=== PATIENT | female | born 1945 | race African-American/Black ===

== ENCOUNTER 2017-01-26 01:03 | Inpatient (IN) | payer OTHER, MEDICARE, BC ==
[2017-01-26] VITALS (17 sets, daily range): BP systolic 105–248; BP diastolic 45–110; PULSE 30–88; RESP 4–18; TEMP 97.7–98.6; O2SAT 95–99
[~2017-01-26] VITALS: Ht 162.6 cm; Wt 82.0 kg
[2017-01-26 01:35] LABS: AUTOMATED NEUTROPHIL # 1.6 TH/MM3 (1.8-7.7); BASOPHIL % 0.6 % (0.0-2.0); EOSINOPHIL # 0.4 TH/MM3 (0-0.4); EOSINOPHIL % 12.2 % (0.0-4.0); HEMATOCRIT 39.2 % (35.0-46.0); HEMO FLAGS DIFF FINAL; LYMPH % 31.5 % (9.0-44.0); LYMPHOCYTE # 1.2 TH/MM3 (1.0-4.8); MEAN CELL VOLUME 96.9 FL (80.0-100.0); MEAN CORPUSCULAR HEMOGLOBIN 32.2 PG (27.0-34.0); MEAN CORPUSCULAR HGB CONC 33.2 % (32.0-36.0); MONO % 11.3 % (0.0-8.0); NEUT % 44.4 % (16.0-70.0); PLATELET COUNT 183 TH/MM3 (150-450); RED BLOOD COUNT 4.04 MIL/MM3 (4.00-5.30); RED CELL DISTRIBUTION WIDTH 15.6 % (11.6-17.2); WHITE BLOOD COUNT 3.7 TH/MM3 (4.0-11.0)
--- NOTE | 2017-01-26 01:39 | RADRPT ---
EXAM DATE/TIME: 01/26/2017 01:27 [facility] COMPARISON: No previous studies available for comparison. INDICATIONS : Altered mental status. RADIATION DOSE: 36.93 CTDIvol (mGy) MEDICAL HISTORY : Non-responsive. SURGICAL HISTORY : Non-responsive. ENCOUNTER: Initial ACUITY: 1 day PAIN SCALE: Non-responsive LOCATION: cranial TECHNIQUE: Multiple contiguous axial images were obtained of the head. Using automated exposure control and adj ustment of the mA and/or kV according to patient size, radiation dose was kept as low as reasonably a chievable to obtain optimal diagnostic quality images. FINDINGS: CEREBRUM: The ventricles are normal for age. Mild periventricular small vessel ischemic demyelination predomin antly in the anterior horn of the left lateral ventricle extending into the external capsule. No evid ence of midline shift, mass lesion, hemorrhage or acute infarction. No extra-axial fluid collections are seen. POSTERIOR FOSSA: The cerebellum and brainstem are intact. The 4th ventricle is midline. The cerebellopontine angle i s unremarkable. EXTRACRANIAL: The visualized portion of the orbits is intact. SKULL: The calvaria is intact. No evidence of skull fracture. CONCLUSION: 1. Mild small vessel disease predominantly in the anterior horn of the left lateral ventricle extendi ng into the external capsule. 2. No acute intracranial process. Dante Cano MD on January 26, 2017 at 1:36 Board Certified Radiologist. This report was verified electronically.
--- NOTE | 2017-01-26 01:40 | RADRPT ---
EXAM DATE/TIME: 01/26/2017 01:36 [facility] COMPARISON: No previous studies available for comparison. INDICATIONS : Weakness. Syncope. MEDICAL HISTORY : None. SURGICAL HISTORY : None. ENCOUNTER: Initial ACUITY: 1 day PAIN SCORE: 5/10 LOCATION: Bilateral chest FINDINGS: A single view of the chest demonstrates hypoinflation with no acute infiltrate. Heart size is promine nt a well compensated. A vascular stent is seen in the right subclavian region. CONCLUSION: 1. Compensated cardiomegaly. 2. No acute infiltrate. Dante Cano MD on January 26, 2017 at 1:38 Board Certified Radiologist. This report was verified electronically.
[2017-01-26 01:42] LABS: APTT (PATIENT) 24.3 SEC (24.3-30.1); PROTHROMBIN TIME - PATIENT 10.7 SEC (9.8-11.6)
[2017-01-26 01:47] LABS: BACTERIA, URINE MOD /hpf; BLOOD, URINE SMALL (NEG); COMMENT (UR) CATH-CULTURE IND; CULTURE IF INDICATED CATH CULTURE IND; GLUCOSE,URINE TRACE mg/dL (NEG); KETONE, URINE NEG (NEG); NITRITE,URINE NEG (NEG); PH, URINE 7.5 (5.0-8.5); SQUAMOUS EPITHELIAL CELL URINE 10 /hpf (0-5); URINE COLOR LIGHT-YELLOW (YELLW/STRAW)
[2017-01-26 01:52] LABS: AMPHETAMINE, URINE NEG (NEG); BARBITURATES, URINE NEG (NEG); COCAINE, URINE NEG (NEG)
[2017-01-26 02:06] LABS: ALKALINE PHOSPHATASE 79 U/L (45-117); TOTAL BILIRUBIN ADULT 0.4 MG/DL (0.2-1.0)
[2017-01-26] MEDS ORDERED: LABETALOL HCL 100 MG/20 ML VIAL IV PUSH ONE (02:15)
[2017-01-26 02:16] LABS: ALT (GPT) 15 U/L (10-53); ANION GAP 17 MEQ/L (5-15); AST (GOT) 20 U/L (15-37); BICARBONATE 20.4 MEQ/L (21.0-32.0); BLOOD UREA NITROGEN 40 MG/DL (7-18); CHLORIDE 99 MEQ/L (98-107); GLOMERULAR FILTRATION RATE 5 ML/MIN (>89); POTASSIUM 5.4 MEQ/L (3.5-5.1); SODIUM (NA) 136 MEQ/L (136-145)
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
[2017-01-26] MEDS ORDERED: PHENYTOIN INJ 250 MG/5 ML VIAL IV ONE (03:30)
[2017-01-26] MEDS ORDERED: SODIUM CHLORIDE 0.9% FLUSH 5 ML FLUSH FLUSH PRN (04:45)
[2017-01-26] MEDS ORDERED: NALOXONE HCL 0.4 MG/ML AMP IV PRN (04:45)
[2017-01-26] MEDS ORDERED: LORazepam 2 MG/ML VIAL IV PUSH PRN (04:45)
[2017-01-26] MEDS ORDERED: HEPARIN SODIUM - SQ 10,000 UNITS/ML VIAL SQ SCH (06:00)
[2017-01-26] MEDS ORDERED: hydrALAZINE HCL 20 MG/ML VIAL IV PRN (07:30)
[2017-01-26] MEDS ORDERED: GLUCAGON 1 MG/ML VIAL OTHER PRN (07:30)
[2017-01-26] MEDS ORDERED: DEXTROSE 50% IN WATER 50 ML VIAL(D50) IV PUSH PRN (07:30)
[2017-01-26] MEDS ORDERED: cloNIDine HCL 0.1 MG TAB PO PRN ×2 (07:30→11:00)
[2017-01-26] MEDS ORDERED: CALCIUM CARBONATE 500 MG CHEWABLE TAB CHEW PRN (07:45)
[2017-01-26] MEDS ORDERED: ACETAMINOPHEN 325 MG TAB PO PRN (07:45)
[2017-01-26] MEDS ORDERED: ONDANSETRON HCL 4 MG/2 ML VIAL IV PRN ×2 (07:45→11:00)
[2017-01-26] MEDS ORDERED: DOCUSATE SODIUM 50 MG/SENNA 8.6 MG TAB PO PRN (07:45)
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
[2017-01-26 08:36] LABS: CKMB 2.8 NG/ML (0.5-3.6)
[2017-01-26] MEDS ORDERED: LOSA100T PO (08:42)
[2017-01-26] MEDS ORDERED: LIDO2GEL11 TOPICAL (08:42)
[2017-01-26] MEDS ORDERED: METF500T PO (08:42)
[2017-01-26] MEDS ORDERED: AMLO10TA2 PO (08:42)
[2017-01-26] MEDS ORDERED: CLOP75TA PO (08:42)
[2017-01-26] MEDS ORDERED: LABE200T2 PO (08:42)
[2017-01-26] MEDS ORDERED: ROSU1TAB10 PO (08:42)
[2017-01-26] MEDS ORDERED: SEVEL800 PO ×2 (08:42)
[2017-01-26] MEDS ORDERED: PHEN100C PO (08:42)
[2017-01-26] MEDS: SODIUM CHLORIDE 0.9% FLUSH 5 ML FLUSH FLUSH SCH ×2 (09:00→21:43)
[2017-01-26] MEDS: LIDOCAINE 2% JELLY 30 ML TUBE TOPICAL SCH (09:00)
[2017-01-26] MEDS ORDERED: CLOPIDOGREL 75 MG TAB PO SCH (09:00)
[2017-01-26] MEDS ORDERED: LABETALOL HCL 200 MG TAB PO SCH (09:00)
[2017-01-26] MEDS ORDERED: SEVELAMER CARBONATE 800 MG TAB PO SCH (09:00)
[2017-01-26] MEDS ORDERED: PHENYTOIN SODIUM 100 MG CAP PO SCH (09:00)
[2017-01-26] MEDS ORDERED: PHENYTOIN SODIUM 100 MG CAP PO ONE (09:15)
[2017-01-26] MEDS ORDERED: ETOMIDATE 20 MG/10 ML VIAL ONE (09:23)
[2017-01-26] MEDS ORDERED: ROCURONIUM INJ 50 MG/5 ML VIAL ONE (09:23)
[2017-01-26] MEDS ORDERED: PHENYTOIN INJ 1,500 MG in SODIUM CHLOR 0.9% 250 ML INJ 250 ML IV ONE (09:30)
[2017-01-26] MEDS ORDERED: PROPOFOL 1000 MG/100 ML INJ 100 ML ONE (09:33)
--- NOTE | 2017-01-26 09:43 | PD ---
Physical Exam Date Seen by Provider: Jan 26, 2017 Time Seen by Provider: 09:38 Narrative I was called in the room by the nurse because the patient was unresponsive, Brynn normal respirations, hypoxia and bradycardic. She had just had a generalized tonic-clonic seizure while she was getting her EEG done. The traffic technician witnessed the seizure and said it lasted for less than 2 minutes. By the time the nurse arrived patient had almost completed with the seizure but started with the abnormal vital signs. When I arrived patient continued to be a goal of respiration and heart rate in the 30s. As the nurse was preparing to put the oxygen mask on her patient stopped breathing. I started giving her assisted ventilation by BVM. After about a minute of assisted ventilation patient started having spontaneous respirations but agonal. She continued to be unresponsive. I decided to intubate her. Respiratory was called. Her heart rate started to oyster picker at this point and went to the 80s. Oxygen saturation prior to intubation was 100% with assisted ventilations. Once the intubation was done and chest x-ray was ordered to confirm the tube placement. The admitting physician was called and currently he is here and planning to transfer the patient to the ICU. Currently she is hemodynamically stable. She is hooked up to the ventilator. Data Data Last Documented VS Vital Signs Date Time Temp Pulse Resp B/P Pulse Ox O2 Delivery O2 Flow Rate FiO2 01/26/17 03:00 62 14 164/75 98 Room Air 01/26/17 01:03 98.5 Orders Electrocardiogram (01/26/17 01:08) Ammonia (01/26/17 01:08) Complete Blood Count With Diff (01/26/17:08) Comprehensive Metabolic Panel (01/26/17:08) Prothrombin Time / Inr (Pt) (01/26/17:08) Act Partial Throm Time (Ptt) (01/26/17:08) Troponin I (01/26/17:08) Thyroid Stimulating Hormone (01/26/17:08) Urinalysis - C+S If Indicated (01/26/17 01:08) Blood Culture (01/26/17 01:08) Chest, Single Ap (01/26/17 01:08) Ct Brain W/O Iv Contrast(Rout) (01/26/17:08) Blood Glucose (01/26/17 01:08) Ecg Monitoring (01/26/17 01:08) Iv Access Insert/Monitor (01/26/17 01:08) Cath For Specimen (01/26/17 01:08) Oximetry (01/26/17 01:08) Drug Screen, Random Urine (01/26/17 01:08) Alcohol (Ethanol) (01/26/17 01:08) Urine Culture (01/26/17 01:10) Labetalol Inj (Trandate Inj) (01/26/17 02:15) Phenytoin (Dilantin) (01/26/17 02:35) Admit Order (Ed Use Only) (01/26/17 03:27) Phenytoin Inj (Dilantin Inj) (01/26/17 03:30) Labs Laboratory Tests Test 01/26/17 01/26/17 01/26/17 01:10 01:15 02:35 Urine Color LIGHT-YELLOW Urine Turbidity HAZY Urine pH 7.5 Urine Specific [place] 1.006 Urine Protein 100 mg/dL Urine Glucose (UA) TRACE mg/dL Urine Ketones NEG mg/dL Urine Occult Blood SMALL Urine Nitrite NEG Urine Bilirubin NEG Urine Urobilinogen LESS THAN 2.0 MG/DL Urine Leukocyte Esterase NEG Urine RBC 2 /hpf Urine WBC 1 /hpf Urine Squamous Epithelial 10 /hpf Cells Urine Bacteria MOD /hpf Urine Yeast (Budding) RARE Microscopic Urinalysis Comment CATH-CULTURE IND Urine Opiates Screen NEG Urine Barbiturates Screen NEG Urine Amphetamines Screen NEG Urine Benzodiazepines Screen NEG Urine Cocaine Screen NEG Urine Cannabinoids Screen NEG White Blood Count 3.7 TH/MM3 Red Blood Count 4.04 MIL/MM3 Hemoglobin 13.0 GM/DL Hematocrit 39.2 % Mean Corpuscular Volume 96.9 FL Mean Corpuscular Hemoglobin 32.2 PG Mean Corpuscular Hemoglobin 33.2 % Concent Red Cell Distribution Width 15.6 % Platelet Count 183 TH/MM3 Mean Platelet Volume 8.1 FL Neutrophils (%) (Auto) 44.4 % Lymphocytes (%) (Auto) 31.5 % Monocytes (%) (Auto) 11.3 % Eosinophils (%) (Auto) 12.2 % Basophils (%) (Auto) 0.6 % Neutrophils # (Auto) 1.6 TH/MM3 Lymphocytes # (Auto) 1.2 TH/MM3 Monocytes # (Auto) 0.4 TH/MM3 Eosinophils # (Auto) 0.4 TH/MM3 Basophils # (Auto) 0.0 TH/MM3 CBC Comment DIFF FINAL Differential Comment Prothrombin Time 10.7 SEC Prothromb Time International 1.0 RATIO Ratio Activated Partial 24.3 SEC Thromboplast Time Sodium Level 136 MEQ/L Potassium Level 5.4 MEQ/L Chloride Level 99 MEQ/L Carbon Dioxide Level 20.4 MEQ/L Anion Gap 17 MEQ/L Blood Urea Nitrogen 40 MG/DL Creatinine 8.75 MG/DL Estimat Glomerular Filtration 5 ML/MIN Rate Random Glucose 114 MG/DL Calcium Level 8.6 MG/DL Total Bilirubin 0.4 MG/DL Aspartate Amino Transf 20 U/L (AST/SGOT) Alanine Aminotransferase 15 U/L (ALT/SGPT) Alkaline Phosphatase 79 U/L Ammonia 20 MCMOL/L Total Creatine Kinase 239 U/L Creatine Kinase MB 2.8 NG/ML Creatine Kinase MB % % Troponin I LESS THAN 0.02 NG/ML Total Protein 8.1 GM/DL Albumin 4.0 GM/DL Thyroid Stimulating Hormone 1.610 uIU/ML 3rd Gen Ethyl Alcohol Level LESS THAN 3 MG/DL Phenytoin (Dilantin) Level 3.9 MCG/ML MDM Supervised Visit with VICKIE: No Critical Care Narrative Aggregate critical care time was 30 minutes. Time to perform other separately billable procedures was not included in the critical care time. My time did not include minutes spent treating any other patients simultaneously or on activities that did not directly contribute to the patient's treatment. The services I provided to this patient were to treat and/or prevent clinically significant deterioration that could result in: Respiratory failure, near code blue I provided critical care services requiring my management, as noted below: Chart data review, documentation time, medication orders and management, vital sign assessments/reviewing monitor data, ordering and reviewing lab tests, ordering and interpreting/reviewing x-rays and diagnostic studies, care of the patient and discussion of the patient with the admitting physicians. Procedures Procedure Narrative After the risks and benefits were discussed the following procedure was performed: INTUBATION: The patient was put in optimal position for the procedure. Rapid sequence intubation was initiated by me using 20 milligrams of etomidate IV and 100 milligrams of rocuronium IV. The patient was intubated with a 7.5 cuffed endotracheal tube. Tube placement was confirmed by visualization of the tube and balloon passing through the cords, capnometry and subsequent chest x-ray. Breath sounds were equal and well aerated bilaterally postintubation. No breath sounds over stomach. Patient tolerated procedure well. Diagnosis Primary Impression: ALTERED MENTAL STATUS, UNSPECIFIED Maria G Weiss MD Jan 26, 2017 09:42
[2017-01-26] MEDS ORDERED: CHLORHEXIDINE GLUCONATE 2 % 1 PACK (2 CLOTHS) TOP PRN (09:45)
[2017-01-26] MEDS ORDERED: NITROGLYCERIN 0.4 MG SL 25 TABS/BTL SL PRN ×2 (09:45→11:00)
[2017-01-26] MEDS ORDERED: DOCUSATE SODIUM 50 MG/SENNA 8.6 MG TAB NG PRN (09:45)
[2017-01-26] MEDS ORDERED: MISCELLANEOUS NURSING INFORMATION XX SCH (09:45)
[2017-01-26] MEDS ORDERED: ROCURONIUM INJ 100 MG/10 ML VIAL IV ONE (10:00)
[2017-01-26] MEDS ORDERED: ETOMIDATE 20 MG/10 ML VIAL IV PUSH ONE (10:00)
[2017-01-26] MEDS ORDERED: PROPOFOL 1000 MG/100 ML INJ 100 ML IV SCH (10:00)
[2017-01-26] MEDS ORDERED: SODIUM CHLORIDE 0.9% IV ONE (10:00)
[2017-01-26] MEDS ORDERED: PHENYTOIN IV ONE (10:00)
[2017-01-26 10:29] LABS: BLOOD GAS BASE EXCESS -9.3 mmol/L (-2-2); BLOOD GAS CARBOXYHEMOGLOBIN 1.4 % (0-4); BLOOD GAS HCO3 16 mmol/L (22-26); BLOOD GAS METHEMOGLOBIN 0.9 % (0-2); BLOOD GAS O2 HGB SATURATION 96 % (90-100); BLOOD GAS OXYGEN CONTENT 16.2 Vol % (12.0-20.0); BLOOD GAS PCO2 31 mmHg (38-42); BLOOD GAS PO2 141 mmHg (61-120); BLOOD GAS TOTAL HGB 11.8 G/DL (12.0-16.0); TEMP CORR TO 98.6
[2017-01-26 10:30] LABS: CRITICAL VALUE YES; DRAW SITE LT RADIAL; FIO2 35 %; NUMBER OF ARTERIAL PUNCTURES 1; OXYGEN DEVICE AC/VT500/R15/PEEP5; STAT NO; ULNAR PULSE Y
[2017-01-26] MEDS ORDERED: SODIUM CHLOR 0.9% 1000 ML INJ 1,000 ML IV PRN ×3 (10:47)
[2017-01-26 10:58] LABS: CKMB 3.4 NG/ML (0.5-3.6)
[2017-01-26] MEDS ORDERED: GENTAMICIN SULFATE (DIALYSIS USE ONLY) 20 MG/2 ML VIAL IV PRN (11:00)
[2017-01-26] MEDS ORDERED: diphenhydrAMINE HCL 25 MG CAP PO PRN (11:00)
[2017-01-26] MEDS ORDERED: HEPARIN SODIUM - IV 10,000 UNITS/10 ML VIAL PRN (11:00)
[2017-01-26] MEDS ORDERED: ALBUMIN HUMAN 25% 25 GM/100 ML BAGP IV PRN (11:00)
[2017-01-26] MEDS ORDERED: HEPARIN SODIUM - IV 10,000 UNITS/10 ML VIAL IVF PRN (11:00)
[2017-01-26] MEDS ORDERED: SODIUM CHLORIDE 0.9% FLUSH 5 ML FLUSH IVF PRN (11:00)
[2017-01-26] MEDS ORDERED: INSULIN ASPART SUPPLEMENTAL SCALE SQ SCH (11:00)
[2017-01-26] MEDS ORDERED: MANNITOL 12.5 GM/50 ML VIAL IV PRN (11:00)
--- NOTE | 2017-01-26 11:13 | RADRPT ---
EXAM DATE/TIME: 01/26/2017 09:49 [place] COMPARISON: CHEST SINGLE AP, January 26, 2017, 1:36. INDICATIONS : Post intubation et tube. MEDICAL HISTORY : None. SURGICAL HISTORY : None. ENCOUNTER: Initial ACUITY: 1 day PAIN SCORE: Non-responsive. LOCATION: chest FINDINGS: Portable AP view of the chest demonstrates a normal-sized cardiac silhouette. No effusion, consolidat ion, or pneumothorax is visualized. The bones and soft tissues demonstrate no acute abnormality. Endo tracheal tube tip measures 4.5 cm from the senait and NG tube courses beyond the GE junction. Vascula r stent overlies the right axilla. CONCLUSION: No acute cardiopulmonary abnormality is identified. ETT in appropriate position. Elver Cheung MD on January 26, 2017 at 11:08 Board Certified Radiologist. This report was verified electronically.
[2017-01-26] MEDS ORDERED: ACETAMINOPHEN 325 MG TAB NG PRN (11:45)
--- NOTE | 2017-01-26 12:37 | PD.CONS ---
[facility] Service Critical Care Medicine Consult Requested By Dr Corcoran Reason for Consult Acute respiratory failure Status epilepticus Acute encephalopathy Primary Care Physician Unknown History of Present Illness Patient is a 71-year-old female with history of ESRD awaiting transplant, seizure disorder, type 2 diabetes, hypertension, CAD with history o PR and stent , pulmonary hypertension, secondary hyperparathyroidism presents with AMS after being found in her car in a ditch. She was disoriented but awake. In the ER she was unable to recall any of the events. She takes Dilantin for her seizures , reports compliance with her medications. Apparently last seizure was over 25years ago. CT of the head was negative and patient was admitted to hospitalist service. As part of workup she had EEG today which showed subclinical seizures, and patient received additional loading dose of Cerebyx ( received loading dose in ER initially for subtherapeutic Dilantin level 3.9). While the spa technician was completing the study patient developed tonic-clonic seizures. Patient also became bradycardic into low 30s. She received Ativan, started having agonal breathing, later became apneic. The patient was intubated by ER physician. Critical care medicine was consulted to assume care I evaluated the patient ED. She remains intubated sedated. No active seizure noted. 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 Cardiac catheterization with stent Right upper extremity AV fistula Colonoscopy Reported Medications Losartan 100 mg daily Labetalol 200 mg twice a day Metformin 500 mg daily Amlodipine 10 mg twice a day Rosuvastatin 40 mg daily Phenytoin 100 mg 3 times a day Renvela 4000 mg by mouth 3 times a day before meals Plavix 75 mg daily Active Ordered Medications Reviewed medication Family History Reviewed Social History No alcohol or tobacco use Physical Exam Vital Signs Vital Signs Date Time Temp Pulse Resp B/P Pulse Ox O2 Delivery O2 Flow Rate FiO2 01/26/17 12:26 60 01/26/17 12:26 97.7 60 15 105/45 98 01/26/17 10:56 75 15 118/56 01/26/17 09:50 70 15 165/67 01/26/17 09:30 99 35 01/26/17 09:30 74 15 194/86 01/26/17 09:27 35 01/26/17 09:15 30 4 01/26/17 05:00 56 14 155/67 97 Room Air 01/26/17 03:00 62 14 164/75 98 Room Air 01/26/17 01:03 98.5 81 14 248/110 95 01/26/17 01:03 14 95 Room Air Physical Exam GENERAL: Well-nourished, well-developed female who is intubated sedated SKIN: Warm and dry. No rash. HEAD: Normocephalic. Atraumatic. EYES: Pupils equal and round. No scleral icterus. No injection or drainage. ENT: No nasal bleeding or discharge, orotracheally intubated NECK: Supple. Trachea midline. CARDIOVASCULAR: Regular rate and rhythm. S1, S2 noted. No murmur appreciated. RESPIRATORY: Clear to auscultation. Breath sounds equal bilaterally. GASTROINTESTINAL: Abdomen soft, non-tender, nondistended. Normoactive bowel sounds x4. 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 Extremities without clubbing, cyanosis, or edema. NEUROLOGICAL: Intubated heavily sedated. Appears to be moving extremities. No sedation hold due to status epilepticus Laboratory Laboratory Tests Test 01/26/17 01/26/17 01/26/17 01/26/17 01:10 01:15 02:35 09:55 Urine Color LIGHT-YELLOW Urine Turbidity HAZY Urine pH 7.5 Urine Specific [place] 1.006 Urine Protein 100 Urine Glucose (UA) TRACE Urine Ketones NEG Urine Occult Blood SMALL Urine Nitrite NEG Urine Bilirubin NEG Urine Urobilinogen LESS THAN 2.0 Urine Leukocyte Esterase NEG Urine RBC 2 Urine WBC 1 Urine Squamous Epithelial 10 Cells Urine Bacteria MOD Urine Yeast (Budding) RARE Microscopic Urinalysis Comment CATH-CULTURE IND Urine Opiates Screen NEG Urine Barbiturates Screen NEG Urine Amphetamines Screen NEG Urine Benzodiazepines Screen NEG Urine Cocaine Screen NEG Urine Cannabinoids Screen NEG White Blood Count 3.7 Red Blood Count 4.04 Hemoglobin 13.0 Hematocrit 39.2 Mean Corpuscular Volume 96.9 Mean Corpuscular Hemoglobin 32.2 Mean Corpuscular Hemoglobin 33.2 Concent Red Cell Distribution Width 15.6 Platelet Count 183 Mean Platelet Volume 8.1 Neutrophils (%) (Auto) 44.4 Lymphocytes (%) (Auto) 31.5 Monocytes (%) (Auto) 11.3 Eosinophils (%) (Auto) 12.2 Basophils (%) (Auto) 0.6 Neutrophils # (Auto) 1.6 Lymphocytes # (Auto) 1.2 Monocytes # (Auto) 0.4 Eosinophils # (Auto) 0.4 Basophils # (Auto) 0.0 CBC Comment DIFF FINAL Differential Comment Prothrombin Time 10.7 Prothromb Time International 1.0 Ratio Activated Partial 24.3 Thromboplast Time Sodium Level 136 Potassium Level 5.4 Chloride Level 99 Carbon Dioxide Level 20.4 Anion Gap 17 Blood Urea Nitrogen 40 Creatinine 8.75 Estimat Glomerular Filtration 5 Rate Random Glucose 114 Calcium Level 8.6 Total Bilirubin 0.4 Aspartate Amino Transf 20 (AST/SGOT) Alanine Aminotransferase 15 (ALT/SGPT) Alkaline Phosphatase 79 Ammonia 20 Total Creatine Kinase 239 256 Creatine Kinase MB 2.8 3.4 Creatine Kinase MB % 1.3 Troponin I LESS THAN 0.02 0.05 Total Protein 8.1 Albumin 4.0 Thyroid Stimulating Hormone 1.610 3rd Gen Ethyl Alcohol Level LESS THAN 3 Phenytoin (Dilantin) Level 3.9 Bedside Creatinine 9.2 Test 01/26/17 10:15 Blood Gas Puncture Site LT RADIAL Blood Gas Patient Temperature 98.6 Blood Gas HCO3 16 Blood Gas Base Excess -9.3 Blood Gas Oxygen Saturation 96 Arterial Blood pH 7.33 Arterial Blood Partial 31 Pressure CO2 Arterial Blood Partial 141 Pressure O2 Arterial Blood Oxygen Content 16.2 Arterial Blood 1.4 Carboxyhemoglobin Arterial Blood Methemoglobin 0.9 Blood Gas Hemoglobin 11.8 Oxygen Delivery Device [id number]/VT500/R15/[id number] Blood Gas Inspired Oxygen 35 Date/Time Procedure Status Source Growth 01/26/17 01:15 Aerobic Blood Culture Received Blood Peripheral Pending 01/26/17 01:15 Anaerobic Blood Culture Received Blood Peripheral Pending 01/26/17 01:10 Urine Culture Received Urine Catheterized Urine Pending Result Diagram: 01/26/1711401/26/17114 Imaging C head- No acute findings Assessment and Plan Assessment and Plan PLAN by system: NEURO: Status epilepticus Seizure disorder Acute encephalopathy -Reloaded with Dilantin. Continue Dilantin 100 mg IV every 8 hours. Repeat level in a.m. -Repeat EEG in a.m. Neurology consulted Dr. Dennis -CT head no acute findings -Propofol for sedation vent synchrony and seizure control RESP: Acute respiratory failure History of pulmonary hypertension -Intubated for airway protection, continue ACV -Start spontaneous breathing trials in 24 hours -DuoNeb q6hr PRN -Vent bundle CV: Hypertension CAD with PR and stents -Monitor HR and blood pressure -Hydralazine when necessary for SBP >160 GI: -Nothing by mouth except meds, IV Protonix : ESRD on HD -Nephrology consulted. HD today ID: -Monitor for infection. No indication for antibiotics at this time HEME: -Monitor CBC, CMP, coags ENDO: History of secondary hyperparathyroidism -Electrolyte replacement as needed -Sliding-scale insulin PROPH: -Bilateral lower extremity SCDs. Heparin 5000 U sq q12. Protonix for GI prophylaxis LINES: -Utilize peripheral IVs, central line if needed CC time 45 min Code Status Full Code Discussed Condition With Samantha Enriquez MD Jan 26, 2017 12:37 Discussed Condition With Samantha Enriquez MD Jan 26, 2017 12:37 Full Code Discussed Condition With Samantha Enriquez MD Jan 26, 2017 12:37
[2017-01-26] MEDS ORDERED: SEVELAMER CARBONATE 800 MG TAB SCH (13:00)
[2017-01-26] MEDS ORDERED: PHENYTOIN SUSP 100 MG/4 ML CUP NG SCH (13:00)
[2017-01-26] MEDS ORDERED: cloNIDine HCL 0.1 MG TAB NG PRN (13:30)
[2017-01-26 15:16] LABS: POTASSIUM 4.3 MEQ/L (3.5-5.1)
[2017-01-26] MEDS: FOSPHENYTOIN SODIUM 100 MG PE/2 ML VIAL IV SCH ×2 (15:41→21:48)
[2017-01-26] MEDS: INSULIN ASPART SUPPLEMENTAL SCALE SQ SCH ×2 (16:00→20:00)
--- NOTE | 2017-01-26 16:17 | MB ---
cc: TESHA ODELL M.D. DATE OF CONSULTATION: 01/26/2017 REASON FOR CONSULTATION: Seizure. HISTORY OF PRESENT ILLNESS: The patient is a 71-year-old woman, intubated on propofol. The history is taken from the chart with a known history of end-stage renal disease, awaiting transplant, history of epilepsy, type 2 diabetes, hypertension, heart disease with OH and stent, pulmonary hypertension, secondary to hyperparathyroidism, comes in with confusion, found in her car in a ditch, disoriented, looks like post ictal. Apparently the last seizure was over [address] was done on admission that did not show any acute findings. Apparently after her EEG, the patient developed a tonic clonic seizure, may have had subclinical seizures during the EEG, was bradycardiac in the 30s, received Ativan, had agonal breathing, intubated by the ER physician. PAST MEDICAL HISTORY: As stated. SOCIAL HISTORY No alcohol. No tobacco. HOME MEDICATIONS: Please refer to the chart. Apparently her Dilantin she takes 100 milligrams 3x a day. PHYSICAL EXAMINATION: VITAL SIGNS: Temperature is 98.3, pulse 88, respiratory rate 15, 146/72 blood pressure, sating at 97%, FIO2 35%. She is intubated, sedated. HEENT: Pupils are pinpoint, no gaze deviation. Does not withdraw or grimace to any painful stimuli, receiving dialysis, basically has a sedated exam. LABORATORY DATA: White count 3.7, guaiac panel unremarkable. Chemistry: GFR is 5, creatinine 8.75, BUN 40, ammonia level is 20, TSH 1.6, potassium 5.4. CK 239, 256 respectively. Cardiac enzymes negative so far. Toxicology: Dilantin level on admission was low at 3.9. UDS otherwise unremarkable. Urine cultures pending. Microbiology so far is not showing anything that is growing. CT head performed, just mild small vessel disease. No acute process. IMPRESSION/PLAN: The patient is a 71 year-old woman with a history of epilepsy, subtherapeutic Dilantin level. Certainly may have provoked her having a seizure. She was loaded with what appears to be Dilantin 1250 milligrams one time dose. I would continue her Dilantin at least 100 milligrams every 8 hours, Cerebyx has been initiated. Check a level, keep level closer to 15 if possible. Antiseizure precautions. Hopefully she will be stable enough to be extubated that meets criteria tomorrow. EEG was done, will get the report of that, and continue current care as outlined. MD BRITANY Ventura/ZAHIRA /3:08 PM /4:07 PM
--- NOTE | 2017-01-26 16:26 | EC ---
Study Study Date:01/26/2017 STUDY CONCLUSIONS SUMMARY - Left ventricle: The cavity size was normal. Wall thickness was increased in a pattern of mild LVH. There was concentric hypertrophy. Systolic function was mildly to moderately reduced. The estimated ejection fraction was in the range of 45% to 50%. Diffuse hypokinesis. Doppler parameters are consistent with abnormal left ventricular relaxation (grade 1 diastolic dysfunction). - Mitral valve: Mild regurgitation. - Tricuspid valve: Mild regurgitation. - Pulmonary arteries: PA peak pressure: 41mm Hg (S). If LV function is below 40, please consider prescribing an ACEI or ARB or document rationale for non-use. PROCEDURE DATA STUDY STATUS: Elective. Procedure: Transthoracic echocardiography. Image quality was good. Scanning was performed from the parasternal, apical, and subcostal acoustic windows. Study completion: The patient tolerated the procedure well. Transthoracic echocardiography. M-mode, complete 2D, complete spectral Doppler, and color Doppler. Patient status: Inpatient. CARDIAC ANATOMY LEFT VENTRICLE: The cavity size was normal. Wall thickness was increased in a pattern of mild LVH. There was concentric hypertrophy. Systolic function was mildly to moderately reduced. The estimated ejection fraction was in the range of 45% to 50%. Diffuse hypokinesis. Doppler parameters are consistent with abnormal left ventricular relaxation (grade 1 diastolic dysfunction). AORTIC VALVE: The valve appears to be grossly normal. Doppler: There was no stenosis. No significant regurgitation. Peak gradient: 12mm Hg (S). MITRAL VALVE: The valve appears to be grossly normal. Doppler: There was no evidence for stenosis. Mild regurgitation. Mean gradient: 2mm Hg (D). Peak gradient: 5mm Hg (D). LEFT ATRIUM: The atrium was mildly dilated. RIGHT VENTRICLE: The cavity size was normal. PULMONIC VALVE: Not well visualized. Doppler: There was no evidence for stenosis. No significant regurgitation. TRICUSPID VALVE: The valve appears to be grossly normal. Doppler: There was no evidence for stenosis. Mild regurgitation. PERICARDIUM: There was no pericardial effusion. BASIC MEASUREMENTS ADULT Normal Left ventricle LV internal dimension, ED, chordal level, *42.6 mm 43-52 PLAX LV internal dimension, ES, chordal level, 35.5 mm 23-38 PLAX Fractional shortening, chordal level, PLAX *17 % >29 LV posterior wall thickness, ED 11.5 mm IVS/LVPW ratio, ED 1.06 <1.3 Ventricular septum Septal thickness, ED 12.2 mm Aortic valve Leaflet separation 20 mm 15-26 Left atrium Anterior-posterior dimension 44 mm Right ventricle RV internal dimension, ED, PLAX 21.9 mm 19-38 BASIC MEASUREMENTS ADULT Normal Aortic valve Leaflet separation 20 mm 15-26 Aorta Root diameter, ED 36 mm 20-37 DOPPLER MEASUREMENTS ADULT Normal Main pulmonary artery Pressure, S *41 mm Hg =30 Aortic valve Peak velocity, S 171 cm/s VTI, S 40.6 cm Peak gradient, S 12 mm Hg Mitral valve Peak E-wave velocity 71.6 cm/s Peak A-wave velocity 98.2 cm/s Mean velocity, D 58.3 cm/s Mean gradient, D 2 mm Hg Peak gradient, D 5 mm Hg Peak E/A ratio 0.7 Tricuspid valve Regurgitant peak velocity 195 cm/s Peak RV-RA gradient, S 15 mm Hg Maximal regurgitant velocity 195 cm/s Systemic veins Estimated CVP 20 mm Hg Right ventricle RV pressure, S *41 mm Hg <30 LEGEND: Mean values are shown as u=mean value. Asterisk (*) delgado values outside specified normal range. Prepared and signed by Juanpablo Oliver [id number]
[2017-01-26] MEDS ORDERED: MORPHINE SULFATE 4 MG/ML INJ ONE (16:33)
[2017-01-26] MEDS: PROPOFOL 1000 MG/100 ML INJ 100 ML IV SCH ×2 (16:37→21:43)
[2017-01-26 17:01] LABS: CKMB 3.1 NG/ML (0.5-3.6)
[2017-01-26] MEDS: HEPARIN SODIUM - SQ 10,000 UNITS/ML VIAL SQ SCH (18:15)
[2017-01-26] MEDS: DEXT 5%-NACL 0.9% 1000 ML INJ 1,000 ML IV SCH (18:30)
--- NOTE | 2017-01-26 18:33 | EKG ---
Date Performed: 01/26/2017 Time Performed: 01:12:31 PTAGE: 71 years EKG: Sinus rhythm POSSIBLE LEFT ATRIAL ENLARGEMENT BORDERLINE ECG NO PREVIOUS TRACING DOCTOR: Carlos Michaels Interpretating Date/Time 01/26/2017 18:32:10
--- NOTE | 2017-01-26 19:25 | MG ---
cc: OLIVA COOK M.D. Sex: F Date: 01/26/2017 An EEG was obtained on this 71-year-old patient with history of seizures, on dialysis. MEDICATIONS Phenytoin. DESCRIPTION: The patient had a seizure while the EEG is being recorded. The EEG initially shows prominent polyspike and slow wave activity in a diffuse manner repeating every second or so. There is some attenuation in between this pattern and then after 5 minutes or so of recording, the patient entered in a clinical as well as electrical seizure activity that seems to have started in a generalized manner, that lasted a minute or so and was followed by severe generalized attenuation. At this point the patient apparently was in some respiratory failure and was intubated. Evidently the EEG was discontinued. INTERPRETATION Abnormal EEG because of a polyspike pattern diffusely repeating every second or so and subsequent ictal event that was characterized by a generalized ictal activity and the patient also demonstrated clinical seizure followed by severe attenuation / suppression in a generalized manner and the patient was subsequently intubated. Oliva Cook MD [facility]/[place]IR[place] /6:45 PM /7:22 PM
[2017-01-26] MEDS ORDERED: ATORVASTATIN 80 MG TAB PO SCH (21:00)
[2017-01-26] MEDS: CHLORHEXIDINE 0.12% (ORAL KIT) 15 ML CUP MT SCH (21:42)
[2017-01-26] MEDS: ATORVASTATIN 80 MG TAB NG SCH (21:47)
[2017-01-26] MEDS: LABETALOL HCL 200 MG TAB NG SCH (21:47)
--- NOTE | 2017-01-26 22:11 | MB ---
cc: CHRISTI STEELE MD DATE OF CONSULTATION 01/26/2017 REASON FOR CONSULTATION End-stage renal disease on hemodialysis for management. HISTORY OF PRESENT ILLNESS This is 71-year-old female with past medical history of diabetes mellitus, hypertension, ischemic heart disease, history of seizure, pulmonary hypertension, hyperparathyroidism, end-stage renal disease on hemodialysis three times per week was brought to the hospital with altered mental status. I was called to see the patient for management of dialysis. The patient has been on hemodialysis Tuesday, Tuesday and Tuesday. She has been following with Dr. Nichole. She is not able to give any history. Most of the history was taken from the patient's chart, according to which she was found in a ditch with confusion and disorientation. The patient was awake when she came to the hospital but she was confused, answering questions appropriately. When I saw her she was already intubated and according to the chart the boyfriend was there in the ER when the patient came. 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 And when she left the house she was acting normally. She has a history of seizures but there is no known seizure for almost 25 years. PAST MEDICAL HISTORY 1. Diabetes mellitus. 2. Hypertension. 3. Ischemic heart disease. 4. Pulmonary hypertension. 5. Secondary hyperparathyroidism. 6. End-stage renal disease on hemodialysis. PAST SURGICAL HISTORY 1. Right arm AV fistula surgery. 2. Hysterectomy. 3. Left shoulder surgery. 4. Cardiac catheterization with angioplasty. 5. Colonoscopy. REVIEW OF SYSTEMS Cannot be taken since the patient is intubated. SOCIAL HISTORY The patient lives with her boyfriend. There is no history of smoking or alcoholism. FAMILY HISTORY Noncontributory. ALLERGIES She has no known drug allergies. MEDICATIONS Currently she is on following medications: 1. Amlodipine 10 mg b.i.d. 2. Albuterol 200 mg b.i.d. 3. Plavix 75 mg once a day. 4. Lipitor 80 mg q.h.s. 5. Heparin 5000 subcu q.12-hour. 6. Insulin aspart sliding scale. 7. Cerebyx injection 10 mg IV q.8 hours. 8. Renvela 2.4 grams t.i.d. 9. Propofol. 10. Narcan as needed. 11. Lorazepam as needed. 12. Zofran as needed. PHYSICAL EXAMINATION VITAL SIGNS: The patient is intubated and sedated. Last blood pressure reported was 125/75, temperature 98.2, oxygen saturation is 96% on 35% FIO2. HEENT: Pupils are mid constricted. Nonicteric sclera, conjunctiva normal. NECK: Supple. JVD is not elevated. LUNGS: The patient has bilateral decreased air entry with scattered wheezing. HEART: S1-S2, regular rhythm. ABDOMEN: Distended, soft, lax. There is no tenderness. Bowel sounds positive. EXTREMITIES: There is no pedal edema. The right arm has an AV fistula. LABORATORY DATA Investigations, WBC count is 3.7, hemoglobin 13.0, platelet count of 183, neutrophils 44.4%. Sodium 136, potassium 5.4, chloride 99, bicarb 20.4, BUN 40, creatinine 8.75, glucose 114, calcium 8.6, AST is 20, ALT is 15. Troponin I is less than 0.02. Albumin 4.0, total protein of 8.1. TSH is 1.6. Potassium is 4.3. Creatinine kinase 248. The repeat troponin I is 0.07. INR is 1.0. Urinalysis showing protein of 100. Toxicology screen showing phenytoin level was 3.9. Other toxicology was negative including ethyl alcohol level was less than 3. Blood culture and urine culture pending. IMAGING STUDIES The patient had chest x-ray done on admission which shows lung palomares clear. ET tube in good position. CT scan of the brain was done which shows small vessel disease. No acute intracranial process. Echocardiogram was done which shows that the ejection fraction is around 45-50% with diffuse hypokinesia. ASSESSMENT/PLAN 1. Altered mental status possibly seizure. 2. Respiratory failure. 3. End-stage renal disease on hemodialysis. 4. Hyperkalemia. 5. History of ischemic heart disease. 6. Encephalopathy. 7. Hypertension. The patient had hemodialysis done and 3 liters of fluid was removed. She tolerated it well. The blood pressure is stable. The patient is n.p.o. I will put her on gentle hydration. an hour. The patient was seen by neurologist and the EEG was done. Also the patient was seen by the supervisor motor vehicle assembly. We will wait for the weaning. The Dilantin level was low and the patient was loaded with Dilantin. We will continue the dialysis Tuesday, Tuesday and Tuesday. Thank you for the consultation and I will follow the patient while she is in the hospital. Christi Steele MD AQJ/KK /9:23 PM /9:38 PM
[2017-01-26 22:31] LABS: CKMB 1.7 NG/ML (0.5-3.6)
[2017-01-27] VITALS (19 sets, daily range): BP systolic 96–141; BP diastolic 43–71; PULSE 64–72; RESP 16–20; TEMP 97.9–98.6; O2SAT 96–99
[2017-01-27] MEDS: PROPOFOL 1000 MG/100 ML INJ 100 ML IV SCH ×2 (01:50→06:02)
[2017-01-27] MEDS: CHLORHEXIDINE GLUCONATE 2 % 1 PACK (2 CLOTHS) TOP SCH (04:00)
[2017-01-27 05:30] LABS: BICARBONATE 22.7 MEQ/L (21.0-32.0); POTASSIUM 4.6 MEQ/L (3.5-5.1)
[2017-01-27 05:35] LABS: HEMATOCRIT 37.9 % (35.0-46.0); MEAN CELL VOLUME 99.2 FL (80.0-100.0); MEAN CORPUSCULAR HEMOGLOBIN 32.5 PG (27.0-34.0); MEAN CORPUSCULAR HGB CONC 32.7 % (32.0-36.0); PLATELET COUNT 132 TH/MM3 (150-450); RED BLOOD COUNT 3.82 MIL/MM3 (4.00-5.30); RED CELL DISTRIBUTION WIDTH 16.4 % (11.6-17.2)
[2017-01-27 05:37] LABS: HEMO FLAGS AUTO DIFF
[2017-01-27 05:51] LABS: CALCIUM-PROTEIN CORRECTED 7.8 MG/DL (8.5-10.1)
[2017-01-27] MEDS: INSULIN ASPART SUPPLEMENTAL SCALE SQ SCH ×6 (06:13→20:00)
[2017-01-27] MEDS: FOSPHENYTOIN SODIUM 100 MG PE/2 ML VIAL IV SCH ×3 (06:14→21:34)
[2017-01-27] MEDS: HEPARIN SODIUM - SQ 10,000 UNITS/ML VIAL SQ SCH ×2 (06:14→18:25)
--- NOTE | 2017-01-27 07:30 | HHI.CCPN ---
Subjective Remarks/Hospital Course Patient is a 71-year-old female with history of ESRD awaiting transplant, seizure disorder, type 2 diabetes, hypertension, CAD with history o SD and stent , pulmonary hypertension, secondary hyperparathyroidism presents with AMS after being found in her car in a ditch. She was disoriented but awake. In the ER she was unable to recall any of the events. She takes Dilantin for her seizures , reports compliance with her medications. Apparently last seizure was over 25years ago. CT of the head was negative and patient was admitted to hospitalist service. As part of workup she had EEG today which showed subclinical seizures, and patient received additional loading dose of Cerebyx ( received loading dose in ER initially for subtherapeutic Dilantin level 3.9). While the instrument/control technician was completing the study patient developed tonic-clonic seizures. Patient also became bradycardic into low 30s. She received Ativan, started having agonal breathing, later became apneic. The patient was intubated by ER physician. Critical care medicine was consulted to assume care. I evaluated the patient ED. She remains intubated sedated. No active seizure noted. Neurology consulted SUBJ 01/27/17: Patient remains intubated heavily sedated. No clinical seizures noted. EEG yesterday showed seizure activity. Dilantin level therapeutic. 2 episodes of bradycardia overnight. Cardiology consulted rule out sick sinus syndrome, especially given recent accident Objective Vital Signs Date Time Temp Pulse Resp B/P Pulse Ox O2 Delivery O2 Flow Rate FiO2 01/27/17 04:38 98 35 01/27/17 04:00 64 01/27/17 00:00 98.4 16 96/54 01/27/17 00:00 Mechanical Ventilator Intake and Output 01/26/17 01/26/17 01/27/17 08:00 16:00 00:00 Output Total 60 ml 3000 ml Balance -60 ml -3000 ml Result Diagram: 01/27/17 0429 01/27/17 0429 Other Results Laboratory Tests Test 01/26/17 10:15 Blood Gas Puncture Site LT RADIAL Blood Gas Patient Temperature 98.6 Blood Gas HCO3 16 mmol/L (22-26) Blood Gas Base Excess -9.3 mmol/L (-2-2) Blood Gas Oxygen Saturation 96 % (90-100) Arterial Blood pH 7.33 (7.380-7.420) Arterial Blood Partial 31 mmHg (38-42) Pressure CO2 Arterial Blood Partial 141 mmHg Pressure O2 (61-120) Arterial Blood Oxygen Content 16.2 Vol % (12.0-20.0) Arterial Blood 1.4 % (0-4) Carboxyhemoglobin Arterial Blood Methemoglobin 0.9 % (0-2) Blood Gas Hemoglobin 11.8 G/DL (12.0-16.0) Oxygen Delivery Device AC/VT500/R15/PEEP5 Blood Gas Inspired Oxygen 35 % Imaging C head- No acute findings Objective Remarks GENERAL: Well-nourished, well-developed female who is intubated sedated SKIN: Warm and dry. No rash. HEAD: Normocephalic. Atraumatic. EYES: Pupils equal and round. No scleral icterus. No injection or drainage. ENT: No nasal bleeding or discharge, orotracheally intubated NECK: Supple. Trachea midline. CARDIOVASCULAR: Regular rate and rhythm. S1, S2 noted. No murmur appreciated. RESPIRATORY: Clear to auscultation. Breath sounds equal bilaterally. GASTROINTESTINAL: Abdomen soft, non-tender, nondistended. Normoactive bowel sounds x4. 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 Extremities without clubbing, cyanosis, or edema. NEUROLOGICAL: Intubated heavily sedated. Spontaneously moving extremities. A/P Assessment and Plan PLAN by system: NEURO: Status epilepticus Seizure disorder Acute encephalopathy -Given the additional loading dose of Dilantin yesterday. Continue Dilantin 100 mg IV every 8 hours. 12.2 today (corrected level for ESRD 24.4) Repeat level in a.m. -Repeat EEG today. Neurology consulted Dr. Dennis. CT head no acute findings -Propofol for sedation vent synchrony and seizure control. Start spontaneous awakening trials today RESP: Acute respiratory failure History of pulmonary hypertension -Intubated for airway protection, continue ACV -Start spontaneous breathing trials today -DuoNeb q6hr PRN, Vent bundle CV: Intermittent bradycardia Hypertension CAD with SD and stents -Monitor HR and blood pressure. Rule out sick sinus syndrome cardiology consulted -Hydralazine when necessary for SBP >160 GI: -Nothing by mouth except meds, IV Protonix -Tube feeds with Nepro if not extubated in 24 : ESRD on HD -Nephrology consulted. HD 01/26 ID: -Monitor for infection. No indication for antibiotics at this time HEME: -Monitor CBC, CMP, coags ENDO: History of secondary hyperparathyroidism -Electrolyte replacement as needed -Sliding-scale insulin PROPH: -Bilateral lower extremity SCDs. Heparin 5000 U sq q12. Protonix for GI prophylaxis LINES: -Utilize peripheral IVs, central line if needed CC time 32 min Samantha Raya MD Jan 27, 2017 07:30
[2017-01-27] MEDS: CHLORHEXIDINE 0.12% (ORAL KIT) 15 ML CUP MT SCH ×2 (08:00→20:00)
[2017-01-27 08:02] LABS: BANDS 3 % (0-6); EOSINOPHILS 6 % (0-4); NEUTROPHIL # MANUAL DIFF 4.1 TH/MM3 (1.8-7.7); PLATELET ESTIMATE SMEAR LOW (NORMAL); PLATELET MORPHOLOGY ENLARGED (NORMAL); POLYS (SEG NEUTROPHILS) 66 % (16-70); WBC DIFF SAMPLE 100
[2017-01-27 08:05] LABS: ACANTHOCYTES 2+ (NORMAL); SCAN/DIFF FINAL DIFF MANUAL
[2017-01-27] MEDS: SODIUM CHLORIDE 0.9% FLUSH 5 ML FLUSH FLUSH SCH ×2 (08:50→21:34)
[2017-01-27] MEDS: LIDOCAINE 2% JELLY 30 ML TUBE TOPICAL SCH (08:51)
[2017-01-27] MEDS: LABETALOL HCL 200 MG TAB NG SCH (08:56)
[2017-01-27] MEDS: CLOPIDOGREL 75 MG TAB NG SCH (08:56)
--- NOTE | 2017-01-27 10:27 | MB ---
cc: KENNETH LANDRY DATE OF CONSULTATION 01/27/2017 INDICATION Bradycardia. HISTORY OF PRESENT ILLNESS This a 71-year-old female. She has a history of end-stage renal disease, awaiting kidney transplant. She also has a history of remote seizure, type 2 diabetes, hypertension and coronary disease. She was in her usual state of health up until just prior to her hospitalization. She was found in a ditch in her car, disoriented but awake. She was found to have subclinical seizures. There last seizure was approximately 25 years ago. In the emergency department she developed a tonic-clonic seizure with bradycardia and respiratory distress. The patient was intubated and now presents in the intensive care unit. The entire history is obtained from chart records given the fact the patient is intubated and sedated. PAST MEDICAL HISTORY 1. End-stage renal disease on hemodialysis awaiting kidney transplant. 2. Seizure disorder. 3. Type 2 diabetes. 4. Hypertension. 5. Coronary artery disease with prior myocardial infarction and percutaneous intervention. 6. Pulmonary hypertension secondary to parathyroidism. REPORTED MEDICATIONS 1. Losartan. 2. Labetalol. 3. Metformin. 4. Amlodipine. 5. Rosuvastatin. 6. Fenytoin. 7. Renvela. 8. Plavix. SOCIAL HISTORY Denies any alcohol, tobacco or drug use coronary according to the chart records. FAMILY HISTORY Denies any family history of coronary artery disease according to the chart records. REVIEW OF SYSTEMS Unable to obtain. PHYSICAL EXAMINATION VITAL SIGNS: Temperature 98, heart rate 64, blood pressure is 119/43 mmHg. GENERAL: The patient is intubated, sedated. HEENT: Exam shows pupils dilated. NECK: The jugular veins are difficult to appreciate. No carotid bruits. LUNGS: Clear to auscultation bilaterally. CARDIOVASCULAR EXAM: Regular rate and rhythm without murmurs, rubs or gallops. ABDOMINAL EXAM: Nontender, nondistended. Good bowel sounds. No hepatosplenomegaly. EXTREMITIES: No clubbing, sinus or edema. Mildly decreased pulses but palpable. NEUROLOGIC EXAM: Seems to move extremities but no purposeful movements. LABORATORY DATA WBC 6.0, hemoglobin is 12.4, platelet count 132. INR is 1.0. Sodium 133, potassium 4.6, chloride is 98, bicarb is 22, BUN is 24, creatinine is 6.49. Troponin 0.07. ASSESSMENT 1. Bradycardia. 2. Respiratory distress. 3. Seizure. 4. History of coronary disease, hypertension, diabetes and peripheral arterial disease. PLAN Telemetry was reviewed in detail. She did have slight bradycardia, lowest heart rate observed was 51 beats per minute. Reviewed all telemetry strips in the chart. There is no documentation of her heart rhythm at the time of the bradycardic episode in the emergency department. Reports state that her heart rate was 20-30 beats per minute range, although we do not have documentation other than a dictated record. She does not have any underlying conduction disease noted on electrocardiogram. There are no significant ischemic changes and this troponin was negative. I suspect that at the time her tonic-clonic seizure she had respiratory distress that induced increased vagal tone and associated bradycardia. She has not had any further bradycardia since, does not meet any criteria at this point for permanent pacemaker placement. We will discontinue the labetalol given that can slow the heart rate down and her blood pressures have actually been on the low side. If her blood pressures do become more elevated, something like hydralazine may be a better alternative. For now, unless she has any further episodes of more profound bradycardia or symptomatic with associated bradycardia, we will defer any further cardiac treatment. We will sign off. Call with any further questions. Kenneth Landry MD SM/SSB /9:55 AM /10:02 AM
--- NOTE | 2017-01-27 10:51 | EKG ---
Date Performed: 01/26/2017 Time Performed: 21:28:08 PTAGE: 71 years EKG: Sinus rhythm Lateral ST changes are nonspecific Borderline ECG PREVIOUS TRACING : 01/26/2017 01.12 Compared to prior tracing no significant change DOCTOR: Anurag Goode Interpretating Date/Time 01/27/2017 10:50:03
[2017-01-27] MEDS: cefTRIAXone INJ 1,000 MG in SODIUM CHLORIDE 0.9% INJ 100 ML IV SCH (12:39)
--- NOTE | 2017-01-27 18:13 | RADRPT ---
EXAM DATE/TIME: 01/27/2017 16:45 [facility] COMPARISON: No previous studies available for comparison. INDICATIONS : CVA. Confusion. MEDICAL HISTORY : Renal disease, end stage. Hypertension. Diabetes mellitus type 2. Coronary artery disease. SURGICAL HISTORY : Hysterectomy. Coronary artery stent. Left toes amputation and left shoulder repair. ENCOUNTER: Initial ACUITY: 1 day PAIN SCORE: 0/10 LOCATION: Head. TECHNIQUE: Multiplanar, multisequence MRI of the brain was performed without contrast. FINDINGS: There are mild ischemic changes in the periventricular white matter. No mass, hemorrhage or midline s hift. No recent infarct identified. No sellar mass. There is some focal encephalomalacia in the right temporal lobe probably from a prior small infarct. CONCLUSION: 1. Mild ischemic changes in the periventricular white matter. No acute infarct or mass effect. 2. Focal encephalomalacia right temporal lobe probably from prior infarct. Micky Sutherland MD on January 27, 2017 at 18:08 Board Certified Radiologist. This report was verified electronically.
[2017-01-27] MEDS: DEXT 5%-NACL 0.9% 1000 ML INJ 1,000 ML IV SCH (18:25)
--- NOTE | 2017-01-27 19:03 | MG ---
cc: OLIVA MEDINA MD Lab No: Date: 01/27/17 Age: 71 Sex: F Race: REQUESTING PHYSICIAN Dr. Lozada. An EEG was obtained on this 71-year-old with history of seizures. This EEG is done while the patient is intubated on Diprivan, although the medication was off at the time of the EEG. The study is showing a mixture of theta and delta rhythms bilaterally. There is some beta activity. There are some probably sleep spindles. The study appears to be done mostly when the patient is "asleep". There is even some probable sleep spindles. Photic stimulation disclosed no change. INTERPRETATION Abnormal EEG because of severe slowing bilaterally. Some of the slowing certainly could be just related to sedation. This study seems to be much improved in comparison to the study from yesterday. On today's study, there is no obvious epileptiform discharge. Oliva Medina MD [facility]/ /5:14 PM /6:53 PM
[2017-01-27] MEDS: ATORVASTATIN 80 MG TAB NG SCH (21:34)
[2017-01-28] VITALS (14 sets, daily range): BP systolic 129–169; BP diastolic 65–76; PULSE 61–67; RESP 12–18; TEMP 98–99.5; O2SAT 94–98
[2017-01-28] MEDS: CHLORHEXIDINE GLUCONATE 2 % 1 PACK (2 CLOTHS) TOP SCH (04:00)
[2017-01-28] MEDS: INSULIN ASPART SUPPLEMENTAL SCALE SQ SCH ×7 (04:00→23:57)
[2017-01-28 04:59] LABS: AUTOMATED NEUTROPHIL # 4.3 TH/MM3 (1.8-7.7); BASOPHIL # 0.1 TH/MM3 (0-0.2); BASOPHIL % 0.8 % (0.0-2.0); EOSINOPHIL # 0.2 TH/MM3 (0-0.4); EOSINOPHIL % 2.7 % (0.0-4.0); HEMATOCRIT 40.5 % (35.0-46.0); HEMO FLAGS DIFF FINAL; LYMPH % 21.4 % (9.0-44.0); LYMPHOCYTE # 1.4 TH/MM3 (1.0-4.8); MEAN CELL VOLUME 97.1 FL (80.0-100.0); MEAN CORPUSCULAR HEMOGLOBIN 31.5 PG (27.0-34.0); MEAN CORPUSCULAR HGB CONC 32.4 % (32.0-36.0); MONO % 10.9 % (0.0-8.0); NEUT % 64.2 % (16.0-70.0); PLATELET COUNT 128 TH/MM3 (150-450); RED BLOOD COUNT 4.17 MIL/MM3 (4.00-5.30); RED CELL DISTRIBUTION WIDTH 15.7 % (11.6-17.2); WHITE BLOOD COUNT 6.8 TH/MM3 (4.0-11.0)
[2017-01-28 05:36] LABS: ALKALINE PHOSPHATASE 87 U/L (45-117); ALT (GPT) 24 U/L (10-53); ANION GAP 14 MEQ/L (5-15); AST (GOT) 42 U/L (15-37); BICARBONATE 23.3 MEQ/L (21.0-32.0); BLOOD UREA NITROGEN 38 MG/DL (7-18); CHLORIDE 99 MEQ/L (98-107); GLOMERULAR FILTRATION RATE 5 ML/MIN (>89); POTASSIUM 4.7 MEQ/L (3.5-5.1); SODIUM (NA) 136 MEQ/L (136-145); TOTAL BILIRUBIN ADULT 0.6 MG/DL (0.2-1.0)
[2017-01-28] MEDS: FOSPHENYTOIN SODIUM 100 MG PE/2 ML VIAL IV SCH ×3 (06:13→21:11)
[2017-01-28] MEDS: HEPARIN SODIUM - SQ 10,000 UNITS/ML VIAL SQ SCH ×2 (06:13→16:30)
--- NOTE | 2017-01-28 06:42 | RADRPT ---
EXAM DATE/TIME: 01/28/2017 05:21 [facility] COMPARISON: CHEST SINGLE AP, January 26, 2017, 9:49. INDICATIONS : Evaluate for respiratory disease. MEDICAL HISTORY : None. SURGICAL HISTORY : None. ENCOUNTER: Subsequent ACUITY: 3 days PAIN SCORE: Non-responsive. LOCATION: chest FINDINGS: A single view of the chest demonstrates the lungs to be symmetrically aerated without evidence of mas s, infiltrate or effusion. The cardiomediastinal contours are unremarkable. Osseous structures are intact. Vascular stent in the right subclavian region. CONCLUSION: The lungs are clear. Sb Barrios MD on January 28, 2017 at 6:40 Board Certified Radiologist. This report was verified electronically.
[2017-01-28] MEDS: CHLORHEXIDINE 0.12% (ORAL KIT) 15 ML CUP MT SCH ×2 (07:58→20:00)
[2017-01-28] MEDS: CLOPIDOGREL 75 MG TAB NG SCH (08:27)
[2017-01-28] MEDS: SODIUM CHLORIDE 0.9% FLUSH 5 ML FLUSH FLUSH SCH ×2 (08:45→20:49)
[2017-01-28] MEDS: LIDOCAINE 2% JELLY 30 ML TUBE TOPICAL SCH (09:00)
[2017-01-28] MEDS: GELATIN 12 MM/7 MM FOAM TOP PRN (09:58)
--- NOTE | 2017-01-28 10:10 | HHI.CCPN ---
Subjective Remarks/Hospital Course Patient is a 71-year-old female with history of ESRD awaiting transplant, seizure disorder, type 2 diabetes, hypertension, CAD with history o MA and stent , pulmonary hypertension, secondary hyperparathyroidism presents with AMS after being found in her car in a ditch. She was disoriented but awake. In the ER she was unable to recall any of the events. She takes Dilantin for her seizures , reports compliance with her medications. Apparently last seizure was over 25years ago. CT of the head was negative and patient was admitted to hospitalist service. As part of workup she had EEG today which showed subclinical seizures, and patient received additional loading dose of Cerebyx ( received loading dose in ER initially for subtherapeutic Dilantin level 3.9). While the mri technician was completing the study patient developed tonic-clonic seizures. Patient also became bradycardic into low 30s. She received Ativan, started having agonal breathing, later became apneic. The patient was intubated by ER physician. Critical care medicine was consulted to assume care. I evaluated the patient ED. She remains intubated sedated. No active seizure noted. Neurology consulted SUBJ 01/27/17: Patient remains intubated heavily sedated. No clinical seizures noted. EEG yesterday showed seizure activity. Dilantin level therapeutic. 2 episodes of bradycardia overnight. Cardiology consulted rule out sick sinus syndrome, especially given recent accident 01/28 Patient was extubated yesterday on 2L oxygen with good sats. Afebrile. Objective Vital Signs Date Time Temp Pulse Resp B/P Pulse Ox O2 Delivery O2 Flow Rate FiO2 01/28/17 07:56 96 Nasal Cannula 2.00 01/28/17 07:53 98.0 61 18 165/75 01/27/17 12:48 35 Intake and Output 01/27/17 01/27/17 01/28/17 08:00 16:00 00:00 Intake Total 983 ml 668 ml Output Total 220 ml 15 ml Balance 763 ml 653 ml Result Diagram: 01/28/17 0426 01/28/17 0426 Other Results Laboratory Tests Test 01/28/17 04:26 White Blood Count 6.8 TH/MM3 Red Blood Count 4.17 MIL/MM3 Hemoglobin 13.1 GM/DL Hematocrit 40.5 % Mean Corpuscular Volume 97.1 FL Mean Corpuscular Hemoglobin 31.5 PG Mean Corpuscular Hemoglobin 32.4 % Concent Red Cell Distribution Width 15.7 % Platelet Count 128 TH/MM3 Mean Platelet Volume 8.0 FL Neutrophils (%) (Auto) 64.2 % Lymphocytes (%) (Auto) 21.4 % Monocytes (%) (Auto) 10.9 % Eosinophils (%) (Auto) 2.7 % Basophils (%) (Auto) 0.8 % Neutrophils # (Auto) 4.3 TH/MM3 Lymphocytes # (Auto) 1.4 TH/MM3 Monocytes # (Auto) 0.7 TH/MM3 Eosinophils # (Auto) 0.2 TH/MM3 Basophils # (Auto) 0.1 TH/MM3 CBC Comment DIFF FINAL Differential Comment Sodium Level 136 MEQ/L Potassium Level 4.7 MEQ/L Chloride Level 99 MEQ/L Carbon Dioxide Level 23.3 MEQ/L Anion Gap 14 MEQ/L Blood Urea Nitrogen 38 MG/DL Creatinine 9.11 MG/DL Estimat Glomerular Filtration 5 ML/MIN Rate Random Glucose 92 MG/DL Calcium Level 8.1 MG/DL Total Bilirubin 0.6 MG/DL Aspartate Amino Transf 42 U/L (AST/SGOT) Alanine Aminotransferase 24 U/L (ALT/SGPT) Alkaline Phosphatase 87 U/L Total Protein 7.4 GM/DL Albumin 3.1 GM/DL Phenytoin (Dilantin) Level 12.9 MCG/ML Imaging Last Impressions Chest X-Ray 01/28/17 0600 Signed Impressions: Service Date/Time: Saturday, January 28, 2017 05:21 - CONCLUSION: The lungs are clear. Sb Barrios MD Brain MRI 01/27/17 0000 Signed Impressions: Service Date/Time: January 16:45 - CONCLUSION: 1. Mild ischemic changes in the periventricular white matter. No acute infarct or mass effect. 2. Focal encephalomalacia right temporal lobe probably from prior infarct. Micky Sutherland MD Head CT 01/26/17 0108 Signed Impressions: Service Date/Time: Thursday, January 26, 2017 01:27 - CONCLUSION: 1. Mild small vessel disease predominantly in the anterior horn of the left lateral ventricle extending into the external capsule. 2. No acute intracranial process. Dante Cano MD Objective Remarks GENERAL: Patient is lying in bed in NAD SKIN: Warm and dry. No rash. HEAD: Normocephalic. Atraumatic. EYES: Pupils equal and round. No scleral icterus. No injection or drainage. ENT: No nasal bleeding or discharge, orotracheally intubated NECK: Supple. Trachea midline. CARDIOVASCULAR: Regular rate and rhythm. S1, S2 noted. No murmur appreciated. RESPIRATORY: Clear to auscultation. Breath sounds equal bilaterally. GASTROINTESTINAL: Abdomen soft, non-tender, nondistended. Normoactive bowel sounds. 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 Extremities without clubbing, cyanosis, or edema. NEUROLOGICAL: Awake and alert A/P Assessment and Plan PLAN by system: NEURO: Status epilepticus Seizure disorder Acute encephalopathy -On Dilantin 100 mg IV every 8 hours. 12.9 today -Repeat EEG yesterday: No epileptiform discharges, slowing noted Neurology- Dr. Dennis. CT head no acute findings RESP: Acute respiratory failure- Extubated 01/27 History of pulmonary hypertension -Continue with oxygen keep sat >92% -DuoNeb q6hr PRN, Vent bundle CV: Intermittent bradycardia- resolved Hypertension CAD with MA and stents -Monitor HR and BP keep MAP>65mmHg. On Plavix , Lipitor, Norvasc 10mg daily -Hydralazine when necessary for SBP >160 -Echo showed EF 45-50%, grade I diastolic dysfunction -Cardiology- Dr. Barclay signed off. No recurrence of bradycardic episodes. GI: -Start PO heart healthy diet. IV Protonix : ESRD on HD -Monitor renal function and lytes closely -HD per renal- Dr. Bales -D5NS@42ml/hr ( had hypoglycemic episodes yesterday with BS 40's) ID: - Continue with empiric abx ( Rocephin)Monitor for infection. No indication for antibiotics at this time HEME: -Monitor CBC, CMP, coags ENDO: History of secondary hyperparathyroidism -Sliding-scale insulin for glycemic control PROPH: -Bilateral lower extremity SCDs. Heparin 5000 U sq q12. Protonix for GI prophylaxis LINES: -Utilize peripheral IVs, Level 2 Az Juarez MD Jan 28, 2017 10:10
[2017-01-28] MEDS: cefTRIAXone INJ 1,000 MG in SODIUM CHLORIDE 0.9% INJ 100 ML IV SCH (11:30)
--- NOTE | 2017-01-28 11:44 | HHI.NPPN ---
Subjective General Problems: Hypertension Renal Failure: End Stage Renal Disease History of Present Illness 71-year-old female with past medical history of diabetes mellitus, hypertension, ischemic heart disease, history of seizure, pulmonary hypertension, hyperparathyroidism, end-stage renal disease on hemodialysis three times per week was brought to the hospital with altered mental status. I was called to see the patient for management of dialysis. The patient has been on hemodialysis Tuesday, Tuesday and Tuesday. Additional Remarks Patient is alert, no SOB, still not fully oriented, oriented in place and person. Objective Data Data 01/27/17 01/28/17 19:00 07:00 Intake Total 668 ml 600 ml Output Total 15 ml 50 ml Balance 653 ml 550 ml Intake Oral 20 ml 100 ml IV Total 648 ml 500 ml Output Urine Total 15 ml 50 ml # Bowel Movements 0 0 Vital Signs Date Time Temp Pulse Resp B/P Pulse Ox O2 Delivery O2 Flow Rate FiO2 01/28/17 11:17 99 Nasal Cannula 2.00 01/28/17 11:16 98.2 66 12 157/76 94 01/28/17 11:00 62 01/28/17 07:56 96 Nasal Cannula 2.00 01/28/17 07:55 98 Nasal Cannula 2.00 01/28/17 07:53 98.0 61 18 165/75 95 01/28/17 07:00 61 01/28/17 03:09 64 01/28/17 03:04 97 Nasal Cannula 2.00 01/28/17 03:00 98.2 66 12 143/65 94 01/27/17 23:00 69 01/27/17 23:00 99 Nasal Cannula 2.00 01/27/17 23:00 98.6 72 20 141/69 99 01/27/17 21:46 97 Nasal Cannula 2.00 01/27/17 19:00 97 Nasal Cannula 2.00 01/27/17 19:00 66 01/27/17 19:00 98.4 68 16 138/68 97 01/27/17 16:40 98.6 65 17 130/70 99 01/27/17 15:00 66 01/27/17 15:00 98 Mechanical Ventilator 4.00 Nasal Cannula 01/27/17 14:35 99 Nasal Cannula 4 01/27/17 14:35 99 Nasal Cannula 4.00 01/27/17 12:48 98 35 01/27/17 12:47 98.3 66 17 109/58 99 01/27/17 12:00 35 -: 01/28/17 0426 01/28/17 0426 Physical Exam General Appearance: No Acute Distress, Comfortable Eyes Eye Exam: Pupils Equal Pulmonary Resp Exam: Breath Sounds Equal, No Distress, Decreased Bases Cardiology CV Exam: Regular Gastrointestinal/Abdomen GI Exam: Soft, Non-Tender, Bowel Sounds Present Extremeties Extremities Exam: Trace Edema Neurologic Neuro Exam: Alert, Awake Psychiatric Psych Exam: Appropriate Responses Assessment/Plan Assessment Summary: Hypertension, End Stage Renal Disease Problem List: (1) Diabetes (2) Hypertension (3) ESRD (end stage renal disease) on dialysis (4) Encephalopathy Plan Patient is improved but still has some confusion. Neurology following and EEG done. BP is stable. HD now, remove fluid as tolerated. Problem Qualifiers (1) Diabetes: (2) Hypertension: Qualified Code: I10 - Essential hypertension Alana Bales MD Jan 28, 2017 11:44
[2017-01-28] MEDS: ACETAMINOPHEN 325 MG TAB PO PRN ×2 (12:40→21:12)
[2017-01-28] MEDS: DEXT 5%-NACL 0.9% 1000 ML INJ 1,000 ML IV SCH (18:08)
[2017-01-28] MEDS: ATORVASTATIN 80 MG TAB NG SCH (20:48)
[2017-01-29] VITALS (7 sets, daily range): BP systolic 122–157; BP diastolic 59–74; PULSE 63–68; RESP 12–18; TEMP 96.5–98.9; O2SAT 94–100
[2017-01-29] MEDS: DEXT 5%-NACL 0.9% 1000 ML INJ 1,000 ML IV SCH (03:31)
[2017-01-29] MEDS: CHLORHEXIDINE GLUCONATE 2 % 1 PACK (2 CLOTHS) TOP SCH (04:00)
[2017-01-29] MEDS: INSULIN ASPART SUPPLEMENTAL SCALE SQ SCH ×6 (04:00→23:06)
[2017-01-29 05:15] LABS: AUTOMATED NEUTROPHIL # 3.6 TH/MM3 (1.8-7.7); BASOPHIL # 0.1 TH/MM3 (0-0.2); EOSINOPHIL # 0.3 TH/MM3 (0-0.4); HEMATOCRIT 37.8 % (35.0-46.0); HEMO FLAGS DIFF FINAL; LYMPH % 22.9 % (9.0-44.0); LYMPHOCYTE # 1.5 TH/MM3 (1.0-4.8); MEAN CELL VOLUME 97.5 FL (80.0-100.0); MEAN CORPUSCULAR HEMOGLOBIN 31.5 PG (27.0-34.0); MEAN CORPUSCULAR HGB CONC 32.3 % (32.0-36.0); MONO % 15.5 % (0.0-8.0); NEUT % 55.6 % (16.0-70.0); PLATELET COUNT 137 TH/MM3 (150-450); RED BLOOD COUNT 3.88 MIL/MM3 (4.00-5.30); RED CELL DISTRIBUTION WIDTH 15.5 % (11.6-17.2); WHITE BLOOD COUNT 6.6 TH/MM3 (4.0-11.0)
[2017-01-29 06:07] LABS: ALKALINE PHOSPHATASE 84 U/L (45-117); ALT (GPT) 23 U/L (10-53); ANION GAP 13 MEQ/L (5-15); AST (GOT) 41 U/L (15-37); BLOOD UREA NITROGEN 34 MG/DL (7-18); CHLORIDE 95 MEQ/L (98-107); GLOMERULAR FILTRATION RATE 6 ML/MIN (>89); SODIUM (NA) 134 MEQ/L (136-145); TOTAL BILIRUBIN ADULT 0.5 MG/DL (0.2-1.0)
[2017-01-29 06:15] LABS: POTASSIUM 4.9 MEQ/L (3.5-5.1)
[2017-01-29] MEDS: FOSPHENYTOIN SODIUM 100 MG PE/2 ML VIAL IV SCH ×3 (06:47→23:06)
[2017-01-29] MEDS: HEPARIN SODIUM - SQ 10,000 UNITS/ML VIAL SQ SCH ×2 (06:47→17:40)
--- NOTE | 2017-01-29 07:44 | HHI.CCPN ---
Subjective Remarks/Hospital Course Patient is a 71-year-old female with history of ESRD awaiting transplant, seizure disorder, type 2 diabetes, hypertension, CAD with history o FL and stent , pulmonary hypertension, secondary hyperparathyroidism presents with AMS after being found in her car in a ditch. She was disoriented but awake. In the ER she was unable to recall any of the events. She takes Dilantin for her seizures , reports compliance with her medications. Apparently last seizure was over 25years ago. CT of the head was negative and patient was admitted to hospitalist service. As part of workup she had EEG today which showed subclinical seizures, and patient received additional loading dose of Cerebyx ( received loading dose in ER initially for subtherapeutic Dilantin level 3.9). While the medical lab tech instructor was completing the study patient developed tonic-clonic seizures. Patient also became bradycardic into low 30s. She received Ativan, started having agonal breathing, later became apneic. The patient was intubated by ER physician. Critical care medicine was consulted to assume care. I evaluated the patient ED. She remains intubated sedated. No active seizure noted. Neurology consulted SUBJ 01/27/17: Patient remains intubated heavily sedated. No clinical seizures noted. EEG yesterday showed seizure activity. Dilantin level therapeutic. 2 episodes of bradycardia overnight. Cardiology consulted rule out sick sinus syndrome, especially given recent accident 01/28 Patient was extubated yesterday on 2L oxygen with good sats. Afebrile. 01/29: no patient complaints today. tolerating diet. RUE AVF with mild discomfort after HD yesterday, but she states this is usual for her. Objective Vital Signs Date Time Temp Pulse Resp B/P Pulse Ox O2 Delivery O2 Flow Rate FiO2 01/29/17 03:04 95 Nasal Cannula 2.00 01/29/17 03:00 98.9 68 12 124/68 01/27/17 12:48 35 Intake and Output 01/28/17 01/28/17 01/29/17 08:00 16:00 00:00 Intake Total 600 ml 1544 ml Output Total 50 ml 3000 ml 50 ml Balance 550 ml -3000 ml 1494 ml Result Diagram: 01/29/17 0428 01/29/17427 Imaging Last Impressions Chest X-Ray 01/28/17 0600 Signed Impressions: Service Date/Time: Saturday, January 28, 2017 05:21 - CONCLUSION: The lungs are clear. Sb Barrios MD Brain MRI 01/27/17 0000 Signed Impressions: Service Date/Time: January 16:45 - CONCLUSION: 1. Mild ischemic changes in the periventricular white matter. No acute infarct or mass effect. 2. Focal encephalomalacia right temporal lobe probably from prior infarct. Micky Sutherland MD Head CT 01/26/17 0108 Signed Impressions: Service Date/Time: Thursday, January 26, 2017 01:27 - CONCLUSION: 1. Mild small vessel disease predominantly in the anterior horn of the left lateral ventricle extending into the external capsule. 2. No acute intracranial process. Dante Cano MD Objective Remarks GENERAL: Patient is lying in bed in NAD SKIN: Warm and dry. No rash. HEAD: Normocephalic. Atraumatic. EYES: Pupils equal and round. No scleral icterus. No injection or drainage. ENT: No nasal bleeding or discharge, orotracheally intubated NECK: Supple. Trachea midline. CARDIOVASCULAR: Regular rate and rhythm. S1, S2 noted. No murmur appreciated. RESPIRATORY: Clear to auscultation. Breath sounds equal bilaterally. GASTROINTESTINAL: Abdomen soft, non-tender, nondistended. Normoactive bowel sounds. 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 Extremities without clubbing, cyanosis, or edema. NEUROLOGICAL: Awake and alert A/P Assessment and Plan PLAN by system: NEURO: Status epilepticus- resolved. Seizure disorder Acute encephalopathy- resolved. -On Dilantin 100 mg IV every 8 hours. -Repeat EEG yesterday: No epileptiform discharges, slowing noted Neurology- Dr. Dennis. CT head no acute findings RESP: Acute respiratory failure- Extubated 01/27 History of pulmonary hypertension -Continue with oxygen keep sat >92% -DuoNeb q6hr PRN, Vent bundle CV: Intermittent bradycardia- resolved Hypertension CAD with FL and stents -Monitor HR and BP keep MAP>65mmHg. On Plavix , Lipitor, Norvasc 10mg daily -Hydralazine when necessary for SBP >160 -Echo showed EF 45-50%, grade I diastolic dysfunction -Cardiology- Dr. Barclay signed off. No recurrence of bradycardic episodes. GI: -continue PO heart healthy diet. d/c ppi. : ESRD on HD -Monitor renal function and lytes closely -HD per renal- Dr. Bales -saline lock mivf and continue with low SSI q4h to monitor for hypoglycemia. tolerating diet. ID: - blood cultures negative x 48h. afebrile. will d/c empiric abx. HEME: -Monitor CBC, CMP, coags ENDO: History of secondary hyperparathyroidism -Sliding-scale insulin for glycemic control PROPH: -Bilateral lower extremity SCDs. Heparin 5000 U sq q12. no indication for GI prophylaxis at this time. LINES: -Utilize peripheral IVs, Dispo: transfer to floor with hospitalist following. Emanuel James MD Jan 29, 2017 07:44
[2017-01-29] MEDS: CHLORHEXIDINE 0.12% (ORAL KIT) 15 ML CUP MT SCH ×2 (08:00→20:00)
[2017-01-29] MEDS: LIDOCAINE 2% JELLY 30 ML TUBE TOPICAL SCH (09:00)
[2017-01-29] MEDS: CLOPIDOGREL 75 MG TAB NG SCH (09:11)
[2017-01-29] MEDS: SODIUM CHLORIDE 0.9% FLUSH 5 ML FLUSH FLUSH SCH ×2 (09:11→20:38)
--- NOTE | 2017-01-29 11:03 | HHI.NPPN ---
Subjective General Problems: Hypertension Renal Failure: End Stage Renal Disease History of Present Illness 71-year-old female with past medical history of diabetes mellitus, hypertension, ischemic heart disease, history of seizure, pulmonary hypertension, hyperparathyroidism, end-stage renal disease on hemodialysis three times per week was brought to the hospital with altered mental status. I was called to see the patient for management of dialysis. The patient has been on hemodialysis Tuesday, Tuesday and Tuesday. Additional Remarks Patient seen sitting in chair, some ongoing soreness and muscle aches. No acute complaints. Objective Data Data 01/28/17 01/29/17 19:00 07:00 Intake Total 1544 ml 984 ml Output Total 3050 ml 30 ml Balance -1506 ml 954 ml Intake Oral 840 ml 480 ml IV Total 704 ml 504 ml Output Urine Total 50 ml 30 ml Hemodialysis 3000 ml # Bowel Movements 0 0 Vital Signs Date Time Temp Pulse Resp B/P Pulse Ox O2 Delivery O2 Flow Rate FiO2 01/29/17 10:08 Nasal Cannula 2.00 35 01/29/17 09:43 96.5 68 18 129/64 100 01/29/17 08:06 95 Nasal Cannula 2.00 01/29/17 08:04 98.4 63 17 146/68 95 01/29/17 07:10 96 Nasal Cannula 2.00 01/29/17 03:04 95 Nasal Cannula 2.00 01/29/17 03:00 98.9 68 12 124/68 95 01/29/17 03:00 68 01/28/17 23:00 66 01/28/17 23:00 94 Nasal Cannula 2.00 01/28/17 23:00 98.9 67 16 129/66 95 01/28/17 22:04 96 Nasal Cannula 2.00 01/28/17 22:00 148/72 01/28/17 21:00 169/72 01/28/17 20:00 99.5 66 12 162/75 94 01/28/17 19:00 97 Nasal Cannula 2.00 01/28/17 19:00 64 01/28/17 16:33 98 Nasal Cannula 2.00 01/28/17 16:00 64 01/28/17 16:00 98.0 64 12 165/71 94 01/28/17 13:40 16 01/28/17 11:17 99 Nasal Cannula 2.00 01/28/17 11:16 98.2 66 12 157/76 94 -: 01/29/17 0428 01/29/17 0428 Physical Exam General Appearance: No Acute Distress, Comfortable Eyes Eye Exam: Pupils Equal Pulmonary Resp Exam: Breath Sounds Equal, No Distress, Decreased Bases Cardiology CV Exam: Regular Gastrointestinal/Abdomen GI Exam: Soft, Non-Tender, Bowel Sounds Present Extremeties Extremities Exam: Trace Edema Neurologic Neuro Exam: Alert, Awake Psychiatric Psych Exam: Appropriate Responses Assessment/Plan Assessment Summary: Hypertension, End Stage Renal Disease Problem List: (1) Diabetes (2) Hypertension (3) ESRD (end stage renal disease) on dialysis (4) Encephalopathy Plan Neurology following and EEG done. BP is stable. Feeling better today, tolerated HD yesterday. Plan next HD Tuesday, continue MWF HD. Volume status, electrolytes stable. Problem Qualifiers (1) Diabetes: (2) Hypertension: Qualified Code: I10 - Essential hypertension Raul Bonilla MD Jan 29, 2017 11:03
[2017-01-29] MEDS: ATORVASTATIN 80 MG TAB NG SCH (20:38)
[2017-01-30 00:05] VITALS: BP 148/76; PULSE 67; RESP 19; TEMP 98.7; O2SAT 96
[2017-01-30] MEDS: CHLORHEXIDINE GLUCONATE 2 % 1 PACK (2 CLOTHS) TOP SCH (03:29)
[2017-01-30] MEDS: INSULIN ASPART SUPPLEMENTAL SCALE SQ SCH ×5 (03:29→20:00)
[2017-01-30 04:29] VITALS: BP 139/66; PULSE 68; RESP 20; TEMP 98.4; O2SAT 99
[2017-01-30] MEDS: HEPARIN SODIUM - SQ 10,000 UNITS/ML VIAL SQ SCH ×2 (05:09→16:29)
[2017-01-30] MEDS: FOSPHENYTOIN SODIUM 100 MG PE/2 ML VIAL IV SCH (05:10)
[2017-01-30] MEDS: ACETAMINOPHEN 325 MG TAB PO PRN (05:42)
[2017-01-30 08:00] VITALS: BP 143/69; PULSE 67; RESP 16; TEMP 97; O2SAT 100
[2017-01-30] MEDS: CHLORHEXIDINE 0.12% (ORAL KIT) 15 ML CUP MT SCH ×2 (08:00→20:00)
[2017-01-30] MEDS: SODIUM CHLORIDE 0.9% FLUSH 5 ML FLUSH FLUSH SCH ×2 (08:09→21:49)
[2017-01-30] MEDS: LIDOCAINE 2% JELLY 30 ML TUBE TOPICAL SCH (08:10)
[2017-01-30] MEDS: CLOPIDOGREL 75 MG TAB NG SCH (08:10)
--- NOTE | 2017-01-30 09:44 | HHI.PR ---
Subjective Remarks web application dev specialist Notes: Patient is a 71-year-old female with history of ESRD awaiting transplant, seizure disorder, type 2 diabetes, hypertension, CAD with history o MT and stent , pulmonary hypertension, secondary hyperparathyroidism presents with AMS after being found in her car in a ditch. She was disoriented but awake. In the ER she was unable to recall any of the events. She takes Dilantin for her seizures , reports compliance with her medications. Apparently last seizure was over 25years ago. CT of the head was negative and patient was admitted to hospitalist service. As part of workup she had EEG today which showed subclinical seizures, and patient received additional loading dose of Cerebyx ( received loading dose in ER initially for subtherapeutic Dilantin level 3.9). While the endoscopy tech was completing the study patient developed tonic-clonic seizures. Patient also became bradycardic into low 30s. She received Ativan, started having agonal breathing, later became apneic. The patient was intubated by ER physician. Critical care medicine was consulted to assume care. I evaluated the patient ED. She remains intubated sedated. No active seizure noted. Neurology consulted SUBJ 01/27/17: Patient remains intubated heavily sedated. No clinical seizures noted. EEG yesterday showed seizure activity. Dilantin level therapeutic. 2 episodes of bradycardia overnight. Cardiology consulted rule out sick sinus syndrome, especially given recent accident 01/28 Patient was extubated yesterday on 2L oxygen with good sats. Afebrile. 01/29: no patient complaints today. tolerating diet. RUE AVF with mild discomfort after HD yesterday, but she states this is usual for her. Hospitalist Notes 01/30 patient seen in the room in the presence of nurse Miss Rich, complaint of Right Shoulder Pain, asked for Shoulder X ray switch to by mouth Dilantin, continue HD for ESRD next procedure next Tuesday, No Nausea, vomit or diarrhea. no Shortness of breath. Objective Vital Signs Date Time Temp Pulse Resp B/P Pulse Ox O2 Delivery O2 Flow Rate FiO2 01/30/17 09:12 Nasal Cannula 2.00 35 01/30/17 08:00 97.0 67 16 143/69 100 01/30/17 04:59 Nasal Cannula 2.00 35 01/30/17 04:29 98.4 68 20 139/66 99 01/30/17 00:05 Nasal Cannula 2.00 01/30/17 00:05 98.7 67 19 148/76 96 01/29/17 21:00 Nasal Cannula 2.00 01/29/17 20:41 97.2 65 16 157/74 94 01/29/17 16:00 98.1 65 16 142/67 96 01/29/17 12:44 98.9 67 16 122/59 100 01/29/17 10:08 Nasal Cannula 2.00 35 01/29/17 09:43 96.5 68 18 129/64 100 I/O 01/29/17 01/29/17 01/29/17 01/30/17 01/30/17 01/30/17 07:00 15:00 23:00 07:00 15:00 23:00 Intake Total 984 ml 240 ml 240 ml Output Total 30 ml 200 ml 300 ml Balance 954 ml 40 ml -60 ml Intake Oral 480 ml 240 ml 240 ml IV Total 504 ml Output Urine Total 30 ml 200 ml 300 ml # Bowel Movements 0 0 2 Result Diagram: 01/29/17 0428 01/29/17 0428 Imaging Last Impressions Chest X-Ray 01/28/17 0600 Signed Impressions: Service Date/Time: Saturday, January 28, 2017 05:21 - CONCLUSION: The lungs are clear. Sb Barrios MD Brain MRI 01/27/17 0000 Signed Impressions: Service Date/Time: January 16:45 - CONCLUSION: 1. Mild ischemic changes in the periventricular white matter. No acute infarct or mass effect. 2. Focal encephalomalacia right temporal lobe probably from prior infarct. Micky Sutherland MD Head CT 01/26/17 0108 Signed Impressions: Service Date/Time: Thursday, January 26, 2017 01:27 - CONCLUSION: 1. Mild small vessel disease predominantly in the anterior horn of the left lateral ventricle extending into the external capsule. 2. No acute intracranial process. Dante Cano MD Procedures No procedures performed. Other Results Laboratory Tests Test 01/26/17 01/26/17 01/26/17 01/26/17 01:10 01:15 09:55 10:15 Urine Color LIGHT-YELLOW Urine Turbidity HAZY Urine pH 7.5 Urine Specific Guild 1.006 Urine Protein 100 mg/dL Urine Glucose (UA) TRACE mg/dL Urine Ketones NEG mg/dL Urine Occult Blood SMALL Urine Nitrite NEG Urine Bilirubin NEG Urine Urobilinogen LESS THAN 2.0 MG/DL Urine Leukocyte Esterase NEG Urine RBC 2 /hpf Urine WBC 1 /hpf Urine Squamous Epithelial 10 /hpf Cells Urine Bacteria MOD /hpf Urine Yeast (Budding) RARE Microscopic Urinalysis Comment CATH-CULTURE IND Urine Opiates Screen NEG Urine Barbiturates Screen NEG Urine Amphetamines Screen NEG Urine Benzodiazepines Screen NEG Urine Cocaine Screen NEG Urine Cannabinoids Screen NEG Prothrombin Time 10.7 SEC Prothromb Time International 1.0 RATIO Ratio Activated Partial 24.3 SEC Thromboplast Time Ammonia 20 MCMOL/L Thyroid Stimulating Hormone 1.610 uIU/ML 3rd Gen Ethyl Alcohol Level LESS THAN 3 MG/DL Bedside Creatinine 9.2 MG/DL Blood Gas Puncture Site LT RADIAL Blood Gas Patient Temperature 98.6 Blood Gas HCO3 16 mmol/L Blood Gas Base Excess -9.3 mmol/L Blood Gas Oxygen Saturation 96 % Arterial Blood pH 7.33 Arterial Blood Partial 31 mmHg Pressure CO2 Arterial Blood Partial 141 mmHg Pressure O2 Arterial Blood Oxygen Content 16.2 Vol % Arterial Blood 1.4 % Carboxyhemoglobin Arterial Blood Methemoglobin 0.9 % Blood Gas Hemoglobin 11.8 G/DL Oxygen Delivery Device AC/VT500/R15/[id number] Blood Gas Inspired Oxygen 35 % Test 01/26/17 01/26/17 01/27/17 01/29/17 21:25 22:45 04:29 04:28 Total Creatine Kinase 252 U/L Creatine Kinase MB 1.7 NG/ML Creatine Kinase MB % 0.7 % Troponin I 0.06 NG/ML Nasal Screen MRSA (PCR) NEGATIVE Differential Total Cells 100 Counted Neutrophils % (Manual) 66 % Band Neutrophils % 3 % Lymphocytes % 18 % Monocytes % 7 % Eosinophils % 6 % Neutrophils # (Manual) 4.1 TH/MM3 Platelet Estimate LOW Platelet Morphology Comment ENLARGED Crenated Cell Acanthocytes 2+ Hematology Comments Protein Corrected Calcium 7.8 MG/DL White Blood Count 6.6 TH/MM3 Red Blood Count 3.88 MIL/MM3 Hemoglobin 12.2 GM/DL Hematocrit 37.8 % Mean Corpuscular Volume 97.5 FL Mean Corpuscular Hemoglobin 31.5 PG Mean Corpuscular Hemoglobin 32.3 % Concent Red Cell Distribution Width 15.5 % Platelet Count 137 TH/MM3 Mean Platelet Volume 8.4 FL Neutrophils (%) (Auto) 55.6 % Lymphocytes (%) (Auto) 22.9 % Monocytes (%) (Auto) 15.5 % Eosinophils (%) (Auto) 5.0 % Basophils (%) (Auto) 1.0 % Neutrophils # (Auto) 3.6 TH/MM3 Lymphocytes # (Auto) 1.5 TH/MM3 Monocytes # (Auto) 1.0 TH/MM3 Eosinophils # (Auto) 0.3 TH/MM3 Basophils # (Auto) 0.1 TH/MM3 CBC Comment DIFF FINAL Differential Comment Sodium Level 134 MEQ/L Potassium Level 4.9 MEQ/L Chloride Level 95 MEQ/L Carbon Dioxide Level 26.0 MEQ/L Anion Gap 13 MEQ/L Blood Urea Nitrogen 34 MG/DL Creatinine 7.70 MG/DL Estimat Glomerular Filtration 6 ML/MIN Rate Random Glucose 105 MG/DL Calcium Level 8.0 MG/DL Total Bilirubin 0.5 MG/DL Aspartate Amino Transf 41 U/L (AST/SGOT) Alanine Aminotransferase 23 U/L (ALT/SGPT) Alkaline Phosphatase 84 U/L Total Protein 7.6 GM/DL Albumin 3.3 GM/DL Test 01/30/17 09:30 Phenytoin (Dilantin) Level 12.4 MCG/ML Objective Remarks GENERAL: Patient is lying in bed in NAD SKIN: Warm and dry. No rash. HEAD: Normocephalic. Atraumatic. EYES: Pupils equal and round. No scleral icterus. No injection or drainage. ENT: No nasal bleeding or discharge, orotracheally intubated NECK: Supple. Trachea midline. CARDIOVASCULAR: Regular rate and rhythm. S1, S2 noted. No murmur appreciated. RESPIRATORY: Clear to auscultation. Breath sounds equal bilaterally. GASTROINTESTINAL: Abdomen soft, non-tender, nondistended. Normoactive bowel sounds. 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 Extremities without clubbing, cyanosis, or edema. NEUROLOGICAL: Awake and alert Medications and IVs Current Medications Medications (Trade) Dose Ordered Sig/Guzman Route Start Time Stop Time Status Last Admin (NS Flush) 2 ml UNSCH PRN FLUSH 01/26/17 04:45 01/27/17 21:35 (NS Flush) 2 ml BID FLUSH 01/26/17 09:00 01/30/17 08:09 (Narcan Inj) 0.4 mg UNSCH PRN IV 01/26/17 04:45 (Ativan Inj) 1 mg Q15M PRN IV PUSH 01/26/17 04:45 (Apresoline Inj) 10 mg Q6H PRN IV 01/26/17 07:30 01/28/17 21:57 (D50w (Vial) Inj) 25 ml UNSCH PRN IV PUSH 01/26/17 07:30 01/27/17 11:07 (Glucagon Inj) 1 mg UNSCH PRN OTHER 01/26/17 07:30 (Zofran Inj) 4 mg Q6H PRN IV 01/26/17 07:45 (Tums Chew) 1,000 mg TID PRN CHEW 01/26/17 07:45 (Xylocaine 2% Jelly) 1 applic DAILY TOPICAL 01/26/17 09:00 Miscellaneous Information 1 Q361D XX 01/26/17 09:45 (Chlorhexidine 2% Cloth) 3 pack Taper DAILY@04 TOP 01/27/17 04:00 01/23/18 03:59 01/30/17 03:29 (Chlorhexidine 2% Cloth) 3 pack UNSCH PRN TOP 01/26/17 09:45 (Nitrostat Sl) 0.4 mg Q5M PRN SL 01/26/17 09:45 (Tylenol) 650 mg Q4H PRN NG 01/26/17 11:45 (Norvasc) 10 mg BID NG 01/26/17 21:00 01/30/17 08:10 (Lipitor) 80 mg HS NG 01/26/17 21:00 01/29/17 20:38 (Plavix) 75 mg DAILY NG 01/27/17 09:00 01/30/17 08:10 (Sadaf-Colace) 1 tab BID PRN NG 01/26/17 09:45 (Renvela) 2,400 mg TID .XX 01/26/17 13:00 UNV Heparin Sodium (Porcine) 8000 units 8,000 units UNSCH PRN IVF 01/26/17 11:00 (NS 1000 ml Inj) 1,000 ml @ 0 mls/hr Q0M PRN IV 01/26/17 10:47 (Mannitol Inj) 12.5 gm UNSCH PRN IV 01/26/17 11:00 (Albumin 25% Inj) 25 gm UNSCH PRN IV 01/26/17 11:00 (NS Flush) 5 ml UNSCH PRN IVF 01/26/17 11:00 (Heparin Inj) UNSCH PRN .XX 01/26/17 11:00 (Gentamicin (Dialysis) Inj) 20 mg UNSCH PRN IV 01/26/17 11:00 (Zofran Inj) 4 mg UNSCH PRN IV 01/26/17 11:00 (Tylenol) 650 mg UNSCH PRN PO 01/26/17 11:00 01/30/17 05:42 (Nitrostat Sl) 0.4 mg UNSCH PRN SL 01/26/17 11:00 (Gelfoam 12 Mm/7 Mm Top) 1 foam UNSCH PRN TOP 01/26/17 11:00 01/28/17 09:58 (Peridex 0.12% Liq) 15 ml BID@08,20 MT 01/26/17 20:00 01/27/17 08:00 (Heparin Inj) 5,000 units Q12H SQ 01/26/17 18:00 01/30/17 05:09 (NovoLOG SUPPLEMENTAL SCALE) 1 Q4HR SQ 01/26/17 16:00 01/30/17 03:29 (Dilantin) 100 mg Q8HR PO 01/30/17 14:00 A/P Assessment and Plan 1. Status Epilepticus resolved/Seizure disorder, Acute Encephalopathy continue Dilantin 100 mg every 8 hours\ repeated EEG No epileptiform discharges, CT brain no acute findings. was secondary to subtherapeutic Dilantin level 12.4 2. Acute Respiratory Failure Extubated 01/27/17/History of Pulmonary Hypertension continue Oxygen Bronchodilators, Mucolytics and incentive spirometry, Improved. 3. Intermittent Bradycardia resolved 4. Hypertension controlled 5. CAD with MT and status post PCI and stent placement, continue Plavix, Lipitor , Norvasc Echocardiogram EF 45-50%, grade I diastolic dysfunction web application dev specialist signed off 6. ESRD on HD next HD 01/31/17 7. Secondary Hyperparathyroidism by history 8. Right Shoulder Pain asked for Shoulder Pain, asked for x rays and following -Bilateral lower extremity SCDs. Heparin 5000 U sq q12. no indication for GI prophylaxis at this time. Follow Dilantin levels Discharge Planning Expected by Tomorrow. Wilian Arciniega MD Jan 30, 2017 09:44
--- NOTE | 2017-01-30 11:12 | HHI.NPPN ---
Subjective General Problems: Hypertension Renal Failure: End Stage Renal Disease History of Present Illness 71-year-old female with past medical history of diabetes mellitus, hypertension, ischemic heart disease, history of seizure, pulmonary hypertension, hyperparathyroidism, end-stage renal disease on hemodialysis three times per week was brought to the hospital with altered mental status. I was called to see the patient for management of dialysis. The patient has been on hemodialysis Tuesday, Tuesday and Tuesday. Additional Remarks No acute complaints. Feeling stronger today Objective Data Data 01/29/17 01/30/17 19:00 07:00 Intake Total 480 ml Output Total 500 ml Balance -20 ml Intake Oral 480 ml Output Urine Total 500 ml # Bowel Movements 2 Vital Signs Date Time Temp Pulse Resp B/P Pulse Ox O2 Delivery O2 Flow Rate FiO2 01/30/17 09:12 Nasal Cannula 2.00 35 01/30/17 08:00 97.0 67 16 143/69 100 01/30/17 04:59 Nasal Cannula 2.00 35 01/30/17 04:29 98.4 68 20 139/66 99 01/30/17 00:05 Nasal Cannula 2.00 01/30/17 00:05 98.7 67 19 148/76 96 01/29/17 21:00 Nasal Cannula 2.00 01/29/17 20:41 97.2 65 16 157/74 94 01/29/17 16:00 98.1 65 16 142/67 96 01/29/17 12:44 98.9 67 16 122/59 100 -: 01/29/17 0428 01/29/17 0428 Physical Exam General Appearance: No Acute Distress, Comfortable Eyes Eye Exam: Pupils Equal Pulmonary Resp Exam: Breath Sounds Equal, No Distress, Decreased Bases Cardiology CV Exam: Regular Gastrointestinal/Abdomen GI Exam: Soft, Non-Tender, Bowel Sounds Present Extremeties Extremities Exam: Trace Edema Neurologic Neuro Exam: Alert, Awake Psychiatric Psych Exam: Appropriate Responses Assessment/Plan Assessment Summary: Hypertension, End Stage Renal Disease Problem List: (1) Diabetes (2) Hypertension (3) ESRD (end stage renal disease) on dialysis (4) Encephalopathy Plan Neurology following and EEG done. BP is stable. Feeling stronger today. Plan next HD Tuesday, continue MWF HD. Volume status, electrolytes stable. Problem Qualifiers (1) Diabetes: (2) Hypertension: Qualified Code: I10 - Essential hypertension Raul Bonilla MD Jan 30, 2017 11:12
[2017-01-30 12:00] VITALS: BP 123/57; PULSE 64; RESP 16; TEMP 98.1; O2SAT 94
[2017-01-30] MEDS: PHENYTOIN SODIUM 100 MG CAP PO SCH ×2 (15:15→21:48)
[2017-01-30 16:00] VITALS: BP 141/65; PULSE 66; RESP 16; TEMP 98.2; O2SAT 94
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
[2017-01-30] MEDS ORDERED: SEVELAMER CARBONATE 800 MG TAB PO PRN (16:30)
[2017-01-30 20:00] VITALS: BP 165/79; PULSE 65; RESP 16; TEMP 98; O2SAT 95
[2017-01-30] MEDS: ATORVASTATIN 80 MG TAB NG SCH (21:48)
[2017-01-31] VITALS: BP 153/70; PULSE 67; RESP 16; TEMP 97.9; O2SAT 95
[2017-01-31] MEDS: INSULIN ASPART SUPPLEMENTAL SCALE SQ SCH ×4 (02:34→12:00)
[2017-01-31 04:00] VITALS: BP 142/68; PULSE 68; RESP 16; TEMP 97.8; O2SAT 95
[2017-01-31] MEDS: CHLORHEXIDINE GLUCONATE 2 % 1 PACK (2 CLOTHS) TOP SCH (04:00)
[2017-01-31] MEDS: HEPARIN SODIUM - SQ 10,000 UNITS/ML VIAL SQ SCH (05:55)
[2017-01-31] MEDS: PHENYTOIN SODIUM 100 MG CAP PO SCH (05:56)
[2017-01-31 08:00] VITALS: BP 170/78; PULSE 62; RESP 20; TEMP 97.7; O2SAT 96
[2017-01-31] MEDS: CHLORHEXIDINE 0.12% (ORAL KIT) 15 ML CUP MT SCH (08:00)
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
[2017-01-31] MEDS: LIDOCAINE 2% JELLY 30 ML TUBE TOPICAL SCH (08:38)
[2017-01-31] MEDS: ACETAMINOPHEN 325 MG TAB PO PRN ×2 (08:49→10:16)
[2017-01-31] MEDS: GELATIN 12 MM/7 MM FOAM TOP PRN (08:49)
[2017-01-31] MEDS: CLOPIDOGREL 75 MG TAB NG SCH (11:43)
[2017-01-31] MEDS: SODIUM CHLORIDE 0.9% FLUSH 5 ML FLUSH FLUSH SCH (11:44)
[2017-01-31 11:45] VITALS: BP 116/78; PULSE 78; RESP 18; TEMP 98.2; O2SAT 96
[2017-01-31] MEDS ORDERED: TRAM-388 PO (12:40)
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
--- NOTE | 2017-01-31 12:46 | HHI.FF ---
Face to Face Verification Diagnosis: (1) Diabetes (2) Encephalopathy (3) Hypertension (4) ESRD (end stage renal disease) on dialysis (5) Seizure disorder (6) Respiratory failure, acute Physical Therapy Order: Evaluate and Treat, Improve ambulation, Strength and gait training Home Health Nursing Order: Medical education Signs/symptoms of disease process Medication education-adverse effect Nursing assessment with vital signs I have seen patient Rosario Nicole on 01/31/17. My clinical findings support the need for the requested home health care services because: Ltd mobility - disease progression Deconditioned w/ increased weakness High risk of falls I certify that my clinical findings support that this patient is homebound because: Unsteady gait/balance Unsafe to leave home unassisted Wilian Arciniega MD Jan 31, 2017 12:46
== END 2017-01-31 13:38 | disposition home or self-care (01) | DRG 100 ==
LOC: NEPE 01:03 → NEDA 03:29 → NEDH 09:08 → OBSVTOIN 10:29 → HCVR 12:17 → HOCB 01-29 09:29
PROVIDERS: ADMIT Internal Medicine; ATTEND Internal Medicine
PROC: 5A1945Z Respiratory Ventilation, 24-96 Consecutive Hours (ICD-10-PCS; principal; 2017-01-26)
PROC: 0BH17EZ Insertion of Endotracheal Airway into Trachea, Via Natural or Artificial Opening (ICD-10-PCS; 2017-01-26)
PROC: 5A1D60Z (ICD-10-PCS; 2017-01-26)
DX: G40.401 Other generalized epilepsy and epileptic syndromes, not intractable, with status epilepticus (principal); N18.6 End stage renal disease; J96.01 Acute respiratory failure with hypoxia; G93.41 Metabolic encephalopathy; I12.0 Hypertensive chronic kidney disease with stage 5 chronic kidney disease or end stage renal disease; Z76.82 Awaiting organ transplant status; E11.22 Type 2 diabetes mellitus with diabetic chronic kidney disease; I27.2 Other secondary pulmonary hypertension; N25.81 Secondary hyperparathyroidism of renal origin; M19.011 Primary osteoarthritis, right shoulder; R00.1 Bradycardia, unspecified; I25.10 Atherosclerotic heart disease of native coronary artery without angina pectoris; Z95.5 Presence of coronary angioplasty implant and graft; I25.2 Old myocardial infarction; I16.0 Hypertensive urgency; E78.5 Hyperlipidemia, unspecified; Z99.2 Dependence on renal dialysis; G40.901 Epilepsy, unspecified, not intractable, with status epilepticus; E87.5 Hyperkalemia; I73.9 Peripheral vascular disease, unspecified; E11.649 Type 2 diabetes mellitus with hypoglycemia without coma
CPT/HCPCS: 31500; 36600; 43753; 70450; 70551; 71010; 73030; 80048; 80053; 80185; 80307; 81001; 82140; 82550; 82552; 82565; 82805; 82948; 84132; 84155; 84443; 84484; 85007; 85025; 85027; 85610; 85730; 87040; 87086; 87641; 90935; 93005; 93306; 94002; 94003; 94150; 95819; 96374; J0360; J0696; J1165; J1644; J1815; J2270; J7030; J7042; P9612; Q2009